=== PATIENT | female | born 1940 | race Asian ===

== ENCOUNTER 2016-08-21 15:56 | Emergency (ER) | payer MEDICARE, MEDICAID ==
[~2016-08-21] VITALS: Ht 152.4 cm; Wt 44.0 kg
[~2016-08-21 15:56] MED LIST: PHEN-538 PO
[2016-08-21 16:38] VITALS: Ht 152.4 cm; Wt 44.0 kg
--- NOTE | 2016-08-21 17:34 | ERA ---
ER Documentation Chief Complaint Date/Time DATE: 08/21/16 TIME: 17:34 Chief Complaint ABDOMINAL PAIN,HX COLON CA,Pt HAS COLOSTOMY.SENT BY DR SHAQUILLE DELACRUZ The patient is a 76-year-old female, presenting to the ER because of intermittent abdominal pain for 7 days. He was constipated. She took prune juice and she was able to empty her colostomy. However there was no stool in the colostomy for the last 3 days. She was seen by her physician Dr. Brown who sent her to the hospital for admission. She does not have any fever, chills , neck pain, chest pain, dyspnea, vomiting, dysuria. She does not smoke, drink Past medical history: History of colon cancer, status post chemotherapy and radiation therapy, hypertension Past surgical history: Colostomy, hysterectomy, proctocolectomy ROS All systems reviewed and are negative except as per history of present illness. Medications Home Meds Discontinued Scripts Phenazopyridine Hcl* (Pyridium*) 200 Mg Tab, 200 MG PO TID, #6 TAB Prov:YOON HAIDER 10/07/15 Allergies Allergies: Coded Allergies: Penicillins (Verified Allergy, Mild, VOMITING/DIZZINESS/SOB, 08/21/16) ciprofloxacin (Verified Allergy, Unknown, 08/21/16) PMhx/Soc History of Surgery: Yes (colostomy and partial pro-colectomy) Anesthesia Reaction: No Hx Neurological Disorder: No Hx Respiratory Disorders: No Hx Cardiac Disorders: Yes (HTN) Hx Psychiatric Problems: No Hx Miscellaneous Medical Probl: Yes (H/O FALLS) Hx Alcohol Use: No Hx Substance Use: No Hx Tobacco Use: No Physical Exam Vitals Vital Signs Date Time Temp Pulse Resp B/P Pulse Ox O2 Delivery O2 Flow Rate FiO2 08/21/16 16:38 98.3 77 18 139/69 98 Physical Exam Const: No acute distress. Head: Atraumatic. Eyes: Normal Conjunctiva. ENT: Normal External Ears, Nose and Mouth. Neck: Full range of motion. No meningismus. Resp: Clear to auscultation bilaterally. Cardio: Regular rate and rhythm, no murmurs. Abd: Soft, non distended, normal bowel sounds, non tender. Positive for left lower quadrant colostomy Skin: No petechiae or rashes. Back: No midline or flank tenderness. Ext: No cyanosis, or edema. Neur: Awake and alert. No focal deficit Psych: Normal Mood and Affect. Result Diagram: 08/21/16 1750 08/21/16 1840 Results 24 hrs Laboratory Tests Test 08/21/16 17:40 08/21/16 17:50 08/21/16 18:14 08/21/16 18:40 Urine Bilirubin NEGATIVE Urine Clarity CLEAR Urine Color YELLOW Urine Glucose NEGATIVE% Urine Hemoglobin 2+ Urine Ketones TRACE Urine Leukocyte Esterase NEGATIVE Urine Microscopic RBC 2-5/HPF Urine Microscopic WBC 0-2/HPF Urine Nitrite NEGATIVE Urine Specific [place] 1.015 Urine Squamous Epithelial Cells OCCASIONAL Urine Total Protein NEGATIVE Urine Urobilinogen 0.2 E.U./dL Urine pH 5.0 Basophils # 0.010^3/ul Basophils % 0.3% Eosinophils # 0.010^3/ul Eosinophils % 0.6% Hematocrit 40.9% Hemoglobin 13.6g/dl Lymphocytes # 1.310^3/ul Lymphocytes % 21.6% Mean Corpuscular Hemoglobin 32.4pg Mean Corpuscular Hemoglobin Concent 33.3g/dl Mean Corpuscular Volume 97.3fl Mean Platelet Volume 9.1fl Monocytes # 0.910^3/ul Monocytes % 14.0% Neutrophils # 3.910^3/ul Neutrophils % 63.5% Nucleated Red Blood Cells # 0.010^3/ul Nucleated Red Blood Cells % 0.0/100WBC Platelet Count 36208^3/UL Red Blood Count 4.2010^6/ul Red Cell Distribution Width 13.1% White Blood Count 6.210^3/ul Bedside Urine Blood 2+ Bedside Urine Glucose (UA) Negative Bedside Urine Ketones (LAB) Trace Bedside Urine Leukocyte Esterase (L Negative Bedside Urine Nitrite (LAB) Negative Bedside Urine Protein (LAB) Negative Bedside Urine pH (LAB) 5.5 Alanine Aminotransferase (ALT/SGPT) 34IU/L Albumin 4.0g/dl Albumin/Globulin Ratio 1.05 Alkaline Phosphatase 79IU/L Anion Gap 16 Aspartate Amino Transf (AST/SGOT) 28IU/L Blood Urea Nitrogen 17mg/dl Calcium Level 9.5mg/dl Carbon Dioxide Level 29mmol/L Chloride Level 103mmol/L Creatinine 0.69mg/dl Direct Bilirubin 0.00mg/dl Globulin 3.80g/dl Glucose Level 90mg/dl Indirect Bilirubin 0.3mg/dl Lipase 125U/L Potassium Level 4.8mmol/L Sodium Level 143mmol/L Total Bilirubin 0.3mg/dl Total Protein 7.8g/dl Procedures/[place] [id number] Radiology Main Line: [phone] DIAGNOSTIC IMAGING REPORT Patient: CHERYL LEVY : 1940 Age: 76 Sex: F [id number] [facility] [id number] DOS: 08/21/16 1747 Ordering MD: JERRY BROWN MD Location: E/R Room/Bed: PROCEDURE: CT Abdomen and Pelvis without contrast. CLINICAL INDICATION: Pain. TECHNIQUE: CT scan of the abdomen and pelvis was performed on a multidetector slice CT scanner. No intravenous contrast material was utilized. Sagittal and coronal reformatted images were obtained from the axial source images. Images were reviewed on a high-resolution PACS workstation. Exam CTDlvol = 4.6 mGy and DLP = 239 Gy-cm. COMPARISON: None. FINDINGS: Left lower quadrant colostomy is redemonstrated. There is surgical clips compatible the rectosigmoid colon resection are redemonstrated. There is abundant stool throughout the colon. There is no obstruction or ileus. There is diffuse gastric wall thickening redemonstrated. The appendix is not identified. There is no secondary evidence for acute appendicitis. There is no evidence for diverticulitis. There is no free fluid. The liver is overall normal in size. No intrahepatic lesions are identified. The gallbladder is contracted. There is no definite biliary ductal dilation. Pancreas is normal in appearance. Spleen is unremarkable.. There are no adrenal masses. The aorta is normal caliber. There are atherosclerotic vascular calcifications. 5 mm cortical hyperdensity in the lower pole of the left kidney, unchanged. There is a punctate nonobstructing calcification in the lower pole left kidney. Kidneys are otherwise normal in appearance without hydronephrosis or obstructing calculus. Ureters are of normal caliber. Urinary bladder is partially contracted with nonspecific wall thickening.. Neither the uterus and ovaries were identified. There is a reverse S-shaped scoliosis with associated degenerative changes of the spine. Limited evaluation lung bases is unremarkable. IMPRESSION: 1. Redemonstrated left lower quadrant colostomy. Abundant stool throughout the colon. No definite structure ileus. 2. Status post rectosigmoid colon resection. 3. Appendix not identified. No evidence for appendicitis or diverticulitis. 4. Contracted gallbladder. No evidence for cholecystitis or biliary obstruction. 5. Unchanged small hyperdense cortical probable complex cyst of the left kidney. Punctate nonobstructing calcification left kidney, unchanged. No obstructive uropathy. Partially contracted gallbladder with nonspecific wall thickening. 6. Status post hysterectomy. 7. Atherosclerotic vascular calcifications. 8. Scoliosis with degenerative changes of the thoracic lumbar spine. RPTAT: HMVK .Jerry De Luna MD, MD Date Time Electronically viewed and signed by .Jerry De Luna MD, MD on 08/21/2016 20:49 .K/ CC: JERRY BROWN MD MEDICAL MAKING DECISION: The patient is a 76-year-old female, presenting to the ER because of constipation. The differential diagnoses considered include but are not limited to colostomy malfunction, cholelithiasis, cholecystitis, cystitis, pancreatitis, hepatitis, gastritis, peptic ulcer disease, gastric ulcer, appendicitis, diverticulitis, cholangitis, choledocholithiasis, partial small bowel obstruction. Departure Diagnosis: Primary Impression: Abdominal pain Additional Impression: Constipation Condition: Good Comments She was discharged with MiraLAX I discussed the findings with the patient. I advised the patient to follow-up with her surgeon Dr Anna tomorrow, and return if any concern. JERRY BROWN MD Aug 21, 2016 17:34
[2016-08-21 18:14] LABS: URINE BLOOD (Dip) POC 2+ (NEGATIVE)
[2016-08-21 18:25] LABS: BASOPHILS % 0.3 % (0.0-2.0); EOSINOPHILS % 0.6 % (0.0-7.0); HEMATOCRIT 40.9 % (37.0-47.0); HEMOGLOBIN 13.6 g/dl (12.0-16.0); LYMPHOCYTES # 1.3 10^3/ul (0.8-2.9); LYMPHOCYTES % 21.6 % (15.0-51.0); MEAN CORPUSCULAR HEMOGLOBIN 32.4 pg (29.0-33.0); MEAN CORPUSCULAR HGB CONC 33.3 g/dl (32.0-37.0); MEAN CORPUSCULAR VOLUME 97.3 fl (82.0-101.0); MEAN PLATELET VOLUME 9.1 fl (7.4-10.4); MONOCYTE # 0.9 10^3/ul (0.3-0.9); NEUTROPHIL # 3.9 10^3/ul (1.6-7.5); NEUTROPHILS % 63.5 % (39.0-77.0); PLATELET COUNT 206 10^3/UL (140-440); RED CELL DISTRIBUTION WIDTH 13.1 % (11.5-14.5); UNCORRECTED WBC 6.2 10^3/ul (4.8-10.8); WHITE BLOOD COUNT 6.2 10^3/ul (4.8-10.8)
[2016-08-21 18:26] LABS: CONDITION 1
[2016-08-21 18:29] LABS: ADD UMIC YES; URINE BILIRUBIN (Dip) NEGATIVE (NEGATIVE); URINE BLOOD (Dip) 2+ (NEGATIVE); URINE GLUCOSE (Dip) NEGATIVE (NEGATIVE); URINE KETONES (Dip) TRACE (NEGATIVE); URINE LEUKOCYTE ESTERASE (Dip) NEGATIVE (NEGATIVE); URINE NITRITE (Dip) NEGATIVE (NEGATIVE); URINE TOTAL PROTEIN (Dip) NEGATIVE (NEGATIVE); URINE UROBILINOGEN (Dip) 0.2 E.U./dL (0.1-1.0)
[2016-08-21 18:47] LABS: URINE COLOR YELLOW (YELLOW)
[2016-08-21 18:53] LABS: SQUAMOUS EPITHELIAL CELL,UR OCCASIONAL
[2016-08-21 19:22] LABS: POTASSIUM 4.8 mmol/L (3.5-5.1)
[2016-08-21 19:24] LABS: ALBUMIN/GLOBULIN RATIO 1.05; BILIRUBIN,INDIRECT 0.3 mg/dl (0-1.1); BILIRUBIN,TOTAL 0.3 mg/dl (0.2-1.3); CREATININE 0.69 mg/dl (0.44-1.00); TOTAL PROTEIN 7.8 g/dl (6.1-8.1)
[2016-08-21 19:25] LABS: CALCIUM 9.5 mg/dl (8.4-10.2)
--- NOTE | 2016-08-21 20:49 | RADRPT ---
PROCEDURE: CT Abdomen and Pelvis without contrast. CLINICAL INDICATION: Pain. TECHNIQUE: CT scan of the abdomen and pelvis was performed on a multidetector slice CT scanner. N o intravenous contrast material was utilized. Sagittal and coronal reformatted images were obtained from the axial source images. Images were reviewed on a high-resolution PACS workstation. Exam CTDl vol = 4.6 mGy and DLP = 239 Gy-cm. COMPARISON: None. FINDINGS: Left lower quadrant colostomy is redemonstrated. There is surgical clips compatible the rectosigmoid colon resection are redemonstrated. There is abundant stool throughout the colon. There is no obstr uction or ileus. There is diffuse gastric wall thickening redemonstrated. The appendix is not identi fied. There is no secondary evidence for acute appendicitis. There is no evidence for diverticulit is. There is no free fluid. The liver is overall normal in size. No intrahepatic lesions are identified. The gallbladder is co ntracted. There is no definite biliary ductal dilation. Pancreas is normal in appearance. Spleen i s unremarkable.. There are no adrenal masses. The aorta is normal caliber. There are atheroscleroti c vascular calcifications. 5 mm cortical hyperdensity in the lower pole of the left kidney, unchanged. There is a punctate nono bstructing calcification in the lower pole left kidney. Kidneys are otherwise normal in appearance w ithout hydronephrosis or obstructing calculus. Ureters are of normal caliber. Urinary bladder is p artially contracted with nonspecific wall thickening.. Neither the uterus and ovaries were identified. There is a reverse S-shaped scoliosis with associated degenerative changes of the spine. Limited evaluation lung bases is unremarkable. IMPRESSION: 1. Redemonstrated left lower quadrant colostomy. Abundant stool throughout the colon. No definite structure ileus. 2. Status post rectosigmoid colon resection. 3. Appendix not identified. No evidence for appendicitis or diverticulitis. 4. Contracted gallbladder. No evidence for cholecystitis or biliary obstruction. 5. Unchanged small hyperdense cortical probable complex cyst of the left kidney. Punctate nonobstr ucting calcification left kidney, unchanged. No obstructive uropathy. Partially contracted gallbla dder with nonspecific wall thickening. 6. Status post hysterectomy. 7. Atherosclerotic vascular calcifications. 8. Scoliosis with degenerative changes of the thoracic lumbar spine. RPTAT: HMVK .Jerry De Luna MD, MD Date Time Electronically viewed and signed by .Jerry De Luna MD, MD on 08/21/2016 20:49 .K/
[2016-08-21] MEDS ORDERED: POLY17PO6 PO (21:22)
[2016-08-21 21:55] VITALS: BP 135/75; PULSE 75; RESP 18; TEMP 98.6
== END 2016-08-21 21:56 | disposition home or self-care (01) ==
LOC: E/R 15:56
DX: R10.9 Unspecified abdominal pain (principal); K59.00 Constipation, unspecified; I10 Essential (primary) hypertension; Z85.038 Personal history of other malignant neoplasm of large intestine
CPT/HCPCS: 36415; 74176; 80053; 81001; 81003; 83690; 85025; 87086

== ENCOUNTER 2016-10-28 19:33 | Inpatient (IN) | payer MEDICARE, OTHER ==
[~2016-10-28] VITALS: Ht 154.9 cm; Wt 44.4 kg
[~2016-10-28 19:33] MED LIST changes: -PHEN-538 PO; +POLY17PO6 PO
[2016-10-28] MEDS ORDERED: ONDANSETRON 4 MG INJ IV STA (21:09)
[2016-10-28] MEDS ORDERED: SOD CHLORIDE 0.9% 1,000 ML IV STA (21:09)
--- NOTE | 2016-10-28 21:15 | ERA ---
ER Documentation Chief Complaint Date/Time DATE: 10/28/16 TIME: 21:13 Chief Complaint PT with AP and N/V since last night. HPI Patient is a 76-year-old female status post colon resection with colostomy who presents to the ER with 10 episodes of vomiting. Patient reports gradual onset , constant, dull, lower abdominal pain since last night. She has normal stool output from her ostomy, no diarrhea or constipation. She denies fever, denies bloody emesis. Denies chest pain, denies shortness of breath. ROS All systems reviewed and are negative except as per history of present illness. Medications Home Meds Active Scripts Polyethylene Glycol* (Miralax*) 17 Gm Powd.pack, 17 GM PO DAILY, #10 Prov:RICHARD BROWN MD 08/21/16 Allergies Allergies: Coded Allergies: Penicillins (Verified Allergy, Mild, VOMITING/DIZZINESS/SOB, 08/21/16) ciprofloxacin (Verified Allergy, Unknown, 08/21/16) PMhx/Soc Past medical history: Colon cancer Past surgical history: Total hysterectomy, partial colectomy Social history: Denies tobacco or alcohol History of Surgery: Yes (colostomy and partial pro-colectomy) Anesthesia Reaction: No Hx Neurological Disorder: No Hx Respiratory Disorders: No Hx Cardiac Disorders: Yes (HTN) Hx Psychiatric Problems: No Hx Miscellaneous Medical Probl: Yes (H/O FALLS) Hx Alcohol Use: No Hx Substance Use: No Hx Tobacco Use: No Smoking Status: Never smoker FmHx Family History: No coronary disease, No diabetes Physical Exam Vitals Vital Signs Date Time Temp Pulse Resp B/P Pulse Ox O2 Delivery O2 Flow Rate FiO2 10/28/16 22:54 78 16 138/62 99 Room Air 10/28/16 20:49 88 16 111/61 97 Room Air 10/28/16 19:42 99.3 104 16 127/61 97 Physical Exam Const: Alert, no acute distress Head: Atraumatic Eyes: Normal Conjunctiva, no pallor or icterus ENT: Normal External Ears, Nose and Mouth. Neck: Full range of motion. No meningismus. Resp: Clear to auscultation bilaterally, no wheezes, no rales, no rhonchi Cardio: Regular rate and rhythm, no murmurs Abd: Soft, colostomy in left lower quadrant, mild tenderness bilateral lower quadrants, mild distention. Brown stool in colostomy bag, well-formed Skin: No petechiae or rashes Back: No midline or flank tenderness Ext: No cyanosis, or edema Neur: Awake and alert, cranial nerves II through XII intact bilaterally, moves and feels 4 extremities appropriately Psych: Normal Mood and Affect Result Diagram: 10/28/16211910/28/162119 Results 24 hrs Laboratory Tests Test 10/28/16 21:20 10/28/16 22:00 White Blood Count 11.710^3/ul Red Blood Count 4.6910^6/ul Hemoglobin 15.2g/dl Hematocrit 45.8% Mean Corpuscular Volume 97.7fl Mean Corpuscular Hemoglobin 32.4pg Mean Corpuscular Hemoglobin Concent 33.2g/dl Red Cell Distribution Width 13.0% Platelet Count 01760^3/UL Mean Platelet Volume 10.7fl Neutrophils % 83.2% Lymphocytes % 6.7% Monocytes % 9.4% Eosinophils % 0.2% Basophils % 0.2% Nucleated Red Blood Cells % 0.0/100WBC Neutrophils # 9.810^3/ul Lymphocytes # 0.810^3/ul Monocytes # 1.110^3/ul Eosinophils # 0.010^3/ul Basophils # 0.010^3/ul Nucleated Red Blood Cells # 0.010^3/ul Sodium Level 142mmol/L Potassium Level 4.7mmol/L Chloride Level 98mmol/L Carbon Dioxide Level 31mmol/L Anion Gap 18 Blood Urea Nitrogen 22mg/dl Creatinine 0.91mg/dl Glucose Level 128mg/dl Calcium Level 10.4mg/dl Total Bilirubin 1.1mg/dl Direct Bilirubin 0.00mg/dl Indirect Bilirubin 1.1mg/dl Aspartate Amino Transf (AST/SGOT) 36IU/L Alanine Aminotransferase (ALT/SGPT) 30IU/L Alkaline Phosphatase 95IU/L Total Protein 8.3g/dl Albumin 4.6g/dl Globulin 3.70g/dl Albumin/Globulin Ratio 1.24 Lipase 146U/L Urine Color LT. YELLOW Urine Clarity CLEAR Urine pH 7.0 Urine Specific [place] 1.010 Urine Ketones NEGATIVE Urine Nitrite NEGATIVE Urine Bilirubin NEGATIVE Urine Urobilinogen 0.2 E.U./dL Urine Leukocyte Esterase NEGATIVE Urine Microscopic RBC 2-5/HPF Urine Microscopic WBC 0-2/HPF Urine Squamous Epithelial Cells OCCASIONAL Urine Bacteria FEW Urine Mucus FEW Urine Hemoglobin TRACE Urine Glucose NEGATIVE% Urine Total Protein NEGATIVE Current Medications Medications (Trade) Dose Ordered Sig/Sweta Route PRN Reason Start Time Stop Time Status Last Admin Dose Admin Sodium Chloride (NS) 1,000 ml @ 1,000 mls/hr Q1H STAT IV 10/28/16 21:09 10/28/16 22:08 DC 10/28/16 21:30 Ondansetron HCl 4 mg 4 mg ONCE STAT IV 10/28/16 21:09 10/28/16 21:12 DC 10/28/16 21:30 Acetaminophen (Ofirmev 1000mg/ 100ml Iv) 100 ml @ 400 mls/hr ONCE ONCE IVPB 10/28/16 21:30 10/28/16 21:44 DC 10/28/16 21:30 IV Flush 10 ml 10 ml STK-MED ONCE .ROUTE 10/28/16 21:41 10/28/16 21:42 DC 10/28/16 22:10 Sodium Chloride (NS) 100 ml @ ud STK-MED ONCE .ROUTE 10/28/16 21:41 10/28/16 21:42 DC 10/28/16 22:10 Iohexol (Omnipaque 300mg/ ml) 150 ml STK-MED ONCE .ROUTE 10/28/16 21:42 10/28/16 21:43 DC 10/28/16 22:10 Procedures/MDM EKG read by me: Time 2120, rate 81 Rhythm: Normal sinus [place]: Normal Intervals: Normal ST-T waves: no ischemic changes Ectopy: No Q-waves: No Impression: No evidence of ischemia or arrhythmia MDM: Patient is a 76-year-old female with history of colon cancer status post colectomy, history of prior small bowel obstruction who presents with 10 episodes of vomiting and abdominal pain. CT scan shows small bowel obstruction with transition point. There is no perforation. Patient is not actively vomiting in the ER. There is stool output in the ostomy. She is clinically stable. I discussed the case with her PMD Dr. Phillip, who will admit the patient. We agreed that the patient does not require an NG tube at this time. He will consult a surgeon in the morning unless there is a change in status overnight. Departure Diagnosis: Primary Impression: Small bowel obstruction Condition: Stable JABARI MULLEN MD Oct 28, 2016 21:15
[2016-10-28 21:27] LABS: ADD SCAN DIFF NO
[2016-10-28 21:29] LABS: BASOPHILS % 0.2 % (0.0-2.0); EOSINOPHILS % 0.2 % (0.0-7.0); HEMATOCRIT 45.8 % (37.0-47.0); HEMOGLOBIN 15.2 g/dl (12.0-16.0); LYMPHOCYTES # 0.8 10^3/ul (0.8-2.9); LYMPHOCYTES % 6.7 % (15.0-51.0); MEAN CORPUSCULAR HEMOGLOBIN 32.4 pg (29.0-33.0); MEAN CORPUSCULAR HGB CONC 33.2 g/dl (32.0-37.0); MEAN CORPUSCULAR VOLUME 97.7 fl (82.0-101.0); MEAN PLATELET VOLUME 10.7 fl (7.4-10.4); MONOCYTE # 1.1 10^3/ul (0.3-0.9); MONOCYTES % 9.4 % (0.0-11.0); NEUTROPHIL # 9.8 10^3/ul (1.6-7.5); NEUTROPHILS % 83.2 % (39.0-77.0); PLATELET COUNT 261 10^3/UL (140-415); RED BLOOD COUNT 4.69 10^6/ul (4.20-5.40); WHITE BLOOD COUNT 11.7 10^3/ul (4.8-10.8)
[2016-10-28] MEDS ORDERED: ACETAMINOPHEN 1000MG/100ML IV 100 ML IVPB ONE (21:30)
[2016-10-28] MEDS ORDERED: SOD CHLORIDE 0.9% 100 ML ONE (21:41)
[2016-10-28] MEDS ORDERED: IOHEXOL 300MG/ML 150 ML BTL ONE (21:42)
[2016-10-28 21:47] LABS: ALBUMIN 4.6 g/dl (3.3-4.9); POTASSIUM 4.7 mmol/L (3.5-5.1)
[2016-10-28 21:49] LABS: BILIRUBIN,INDIRECT 1.1 mg/dl (0-1.1); BILIRUBIN,TOTAL 1.1 mg/dl (0.2-1.3); CREATININE 0.91 mg/dl (0.44-1.00)
[2016-10-28 21:50] LABS: ALBUMIN/GLOBULIN RATIO 1.24; CALCIUM 10.4 mg/dl (8.4-10.2); TOTAL PROTEIN 8.3 g/dl (6.1-8.1)
[2016-10-28 22:41] LABS: ADD UMIC YES; URINE BILIRUBIN (Dip) NEGATIVE (NEGATIVE); URINE BLOOD (Dip) TRACE (NEGATIVE); URINE COLOR LT. YELLOW (YELLOW); URINE GLUCOSE (Dip) NEGATIVE (NEGATIVE); URINE KETONES (Dip) NEGATIVE (NEGATIVE); URINE LEUKOCYTE ESTERASE (Dip) NEGATIVE (NEGATIVE); URINE NITRITE (Dip) NEGATIVE (NEGATIVE); URINE TOTAL PROTEIN (Dip) NEGATIVE (NEGATIVE); URINE UROBILINOGEN (Dip) 0.2 E.U./dL (0.1-1.0)
--- NOTE | 2016-10-28 22:43 | RADRPT ---
PROCEDURE: CT Abdomen and Pelvis with contrast. CLINICAL INDICATION: Abdomen and pelvis pain. TECHNIQUE: CT scan of the abdomen and pelvis with contrast was performed. The patient was scanned following the uncomplicated intravenous administration of 90 cc of Omnipaque-300. Coronal and sagit tor reformatted images were obtained from the axial source images. Images were reviewed on a [employer] PACS workstation. Total exam DLP is 217.61 mGy-cm. CTDIvol is 4.16 mGy. One or more of t he following dose reduction techniques were used: Automated exposure control, adjustment of the mA a nd/or kV according to patient size, use of iterative reconstruction technique. COMPARISON: CT scan of the abdomen and pelvis dated 08/21/2016. FINDINGS: The lung bases are normal. There is no pleural effusion or pericardial effusion. The heart is mild ly enlarged. The liver is normal in size and attenuation. There is no focal hepatic lesion. The gallbladder and bile ducts are normal. The spleen is normal in size. There is no focal splenic lesion. Both adrenals are normal with no enlargement or mass. The pancreas is unremarkable with no mass or evidence of pancreatitis. Both kidneys demonstrate normal contrast enhancement. There is no solid renal mass or hydronephros is. There are small benign left renal cysts. The abdominal aorta is not dilated. There is calcification in the aorta consistent with atheroscler osis. There is no retroperitoneal lymphadenopathy or mass. There is no pelvic lymphadenopathy or mass. The bladder and distal ureters are normal. There is a left lower quadrant colostomy. There are multiple dilated loops of small bowel with air-fluid levels consistent with ileus or obstr uction. No obstructing lesion is visualized however, there is a transition point posteriorly inferi fredi in the pelvis. There is a small amount of free fluid throughout the abdomen and pelvis. There is no free air. Mult iple surgical clips are present in the pelvis. There are degenerative changes of the spine. There is no fracture or lytic lesion. IMPRESSION: 1. Mild cardiomegaly. 2. Small benign left renal cysts. 3. Atherosclerosis. 4. Left lower quadrant colostomy. 5. Multiple dilated loops of small bowel with air-fluid levels consistent with ileus or obstruction . Transition point posteriorly inferiorly in the pelvis. 6. Small amount of free fluid in the abdomen and pelvis. 7. Multiple surgical clips in the pelvis. 8. Degenerative changes of the spine. RPTAT: QQ .Jan Cuadra MD, Date Time Electronically viewed and signed by .Jan Cuadra MD, on 10/28/2016 22:42 .R/
[2016-10-28 23:20] LABS: BACTERIA,URINE FEW; SQUAMOUS EPITHELIAL CELL,UR OCCASIONAL
[2016-10-28 23:21] LABS: MUCUS,URINE FEW
[2016-10-29] MEDS ORDERED: ACETAMINOPHEN 325 MG TAB PO PRN (02:30)
[2016-10-29] MEDS ORDERED: ONDANSETRON 4 MG INJ IV PRN ×2 (02:30→04:00)
[2016-10-29 02:52] VITALS: TEMP 98.9
[2016-10-29 03:27] VITALS: Ht 154.9 cm; Wt 44.4 kg
[2016-10-29] MEDS: D5W-0.45 NACL + KCL 20 MEQ 1,000 ML IV SCH ×2 (04:16→17:58)
[2016-10-29 07:30] VITALS: BP 142/73; PULSE 77; RESP 18
[2016-10-29] MEDS ORDERED: PANTOPRAZOLE (EC) 40 MG TAB PO SCH (10:00)
[2016-10-29 10:54] LABS: ADD SCAN DIFF NO
[2016-10-29 11:11] LABS: BASOPHILS % 0.2 % (0.0-2.0); EOSINOPHILS % 0.3 % (0.0-7.0); HEMATOCRIT 44.3 % (37.0-47.0); HEMOGLOBIN 14.6 g/dl (12.0-16.0); LYMPHOCYTES # 0.7 10^3/ul (0.8-2.9); LYMPHOCYTES % 7.8 % (15.0-51.0); MEAN CORPUSCULAR HEMOGLOBIN 32.6 pg (29.0-33.0); MEAN CORPUSCULAR VOLUME 98.9 fl (82.0-101.0); MEAN PLATELET VOLUME 10.7 fl (7.4-10.4); MONOCYTE # 0.8 10^3/ul (0.3-0.9); MONOCYTES % 8.9 % (0.0-11.0); NEUTROPHIL # 7.4 10^3/ul (1.6-7.5); NEUTROPHILS % 82.4 % (39.0-77.0); PLATELET COUNT 247 10^3/UL (140-415); RED BLOOD COUNT 4.48 10^6/ul (4.20-5.40); RED CELL DISTRIBUTION WIDTH 12.8 % (11.5-14.5)
[2016-10-29 11:12] LABS: CALCIUM 9.1 mg/dl (8.4-10.2); CREATININE 0.76 mg/dl (0.44-1.00); POTASSIUM 4.1 mmol/L (3.5-5.1)
[2016-10-29] MEDS: PANTOPRAZOLE 40 MG INJ IV SCH (11:21)
[2016-10-29 13:25] LABS: ADD UMIC YES; URINE BILIRUBIN (Dip) NEGATIVE (NEGATIVE); URINE BLOOD (Dip) TRACE (NEGATIVE); URINE COLOR LT. YELLOW (YELLOW); URINE GLUCOSE (Dip) NEGATIVE (NEGATIVE); URINE KETONES (Dip) 15 (NEGATIVE); URINE LEUKOCYTE ESTERASE (Dip) NEGATIVE (NEGATIVE); URINE NITRITE (Dip) NEGATIVE (NEGATIVE); URINE TOTAL PROTEIN (Dip) NEGATIVE (NEGATIVE); URINE UROBILINOGEN (Dip) 0.2 E.U./dL (0.1-1.0)
[2016-10-29 13:52] LABS: BACTERIA,URINE FEW; SQUAMOUS EPITHELIAL CELL,UR FEW; URINE RBCS 0-2 /HPF (0)
--- NOTE | 2016-10-29 16:47 | RADRPT ---
PROCEDURE: XR Abdomen. CLINICAL INDICATION: Abdominal pain. Possible small bowel obstruction TECHNIQUE: Upright and supine abdominal x-rays were obtained. COMPARISON: CT abdomen and pelvis 10/28/2016 FINDINGS: Gaseous distension of multiple loops of small bowel is unchanged from the prior CT allowing for diff erences in modality with scattered air / fluid levels on the upright projection unable to exclude sm all bowel obstruction versus severe adynamic ileus. Residual contrast media within the urinary bladder is present. Multiple metallic clips in the pelvis are again noted. There is no free intraperitoneal air. The osseus structures are unremarkable. RPTAT:HJJR IMPRESSION: 1. Small bowel obstruction pattern versus severe adynamic ileus is stable compared to the CT of 02/2017 allowing for the differences and modalities. 2. Residual contrast media within the urinary bladder from the prior contrast injection. Physician Paulina Date Time Electronically viewed and signed by Physician Paulina on 10/29/2016 16:46 /
[2016-10-29] MEDS ORDERED: morphine 10 MG INJ IM PRN (17:30)
[2016-10-29] MEDS: CEFTRIAXONE 1 GM/50 ML (PMX) 50 ML IVPB SCH (17:56)
--- NOTE | 2016-10-29 18:05 | HP ---
DATE OF ADMISSION: 10/29/2016 CHIEF COMPLAINT AND HISTORY OF PRESENT ILLNESS: The patient is a 76-year-old lady well known to me from previous followup, with prior history of colon resection, status post colostomy, who presents w ith severe pain in the lower abdomen of 1 day duration and vomited almost 10 times. No hematemesis or melena. Colostomy has been functioning well. The stool has been somewhat harder. No history of any bloody stools. She has a history of colon carcinoma, had a partial proctocolectomy with divert ing colostomy [address] Anna and has been followed closely by Dr. Anna. Her other surgeries include hysterectomy, exact details not clear. She has had several episodes of urinary tr act infection over the last year. PAST MEDICAL HISTORY: Significant for history of hypertension, well controlled. FAMILY HISTORY: Negative for diabetes, hypertension or cancer. HABITS: Does not smoke or drink. REVIEW OF SYSTEMS: HEAD: No history of headaches, focal weakness, or numbness. EYES: No blurry vision or glaucoma. ENT: Noncontributory. NECK: No history of thyroid disease. CHEST: No bronchitis, hay fever, or asthma. The patient does not smoke. CARDIOVASCULAR: No PND, orthopnea, palpitations. GASTROINTESTINAL: As above. There has been no evidence of recurrence of cancer. She has had sever al hospitalizations for small-bowel obstruction, which have resolved with conservative management. GENITOURINARY: History of recurrent urinary tract infections. PHYSICAL EXAMINATION: GENERAL: The patient is an average-built female who is presently complaining of mild lower abdomina l pain. VITAL SIGNS: Temperature 98.3, blood pressure 142/73, O2 saturation 98% on room air. HEENT: Head normocephalic. No pallor, cyanosis, or icterus. Tongue is moist. NECK: Supple. No thyromegaly, bruits or lymphadenopathy. LUNGS: Clinically clear. HEART: S1, S2 heard with no definite gallops. ABDOMEN: Mildly distended, mild lower abdominal tenderness. Bowel sounds are hypoactive. Colostom y bag has stool, no blood noted. EXTREMITIES: No edema. Pedal pulsations 2+ bilaterally. Homans sign is negative. NEUROLOGIC: No localizing or lateralizing signs. LABORATORY DATA: Initial CT scan done on 10/28/2016 shows multiple dilated loops of small bowel wit h air-fluid levels consistent with ileus or obstruction, a small amount of free fluid in the abdomen and pelvis. WBC count 11.7, hematocrit 45.8. Sodium 140, potassium 4.7, BUN 22, creatinine 0.91. IMPRESSION: 1. Small-bowel obstruction status post prior proctocolectomy with colostomy for colon cancer with n o evidence of recurrence. 2. Possible urinary tract infection. 3. Hypertension. PLAN: Will obtain urine cultures and then start the patient on ceftriaxone, keep the patient on bow el rest. Will just give 1 dose of magnesium citrate p.o. Recheck potassium levels in a.m. Continu e IV hydration. Narcotic analgesia for pain. Surgical consultation to be requested Dr. Epps and will follow his recommendations. Dictated By: ASHLEY LA MD, SR/LINA Conf#: [id number] DID#: [id number]
[2016-10-29] MEDS ORDERED: MAGNESIUM CITRATE 300 ML BTL PO ONE (18:30)
[2016-10-29 20:00] VITALS: BP 140/65; RESP 16
--- NOTE | 2016-10-29 21:10 | CONS ---
Date/Time of Note Date/Time of Note DATE: 10/29/16 TIME: 21:00 Assessment/Plan Assessment/Plan Chief Complaint/Hosp Course 1. Abdominal pain, nausea and vomiting secondary to small-bowel obstructions identified on CT scan. This is most probably from adhesive process. -Hematology/Oncology and GI evaluation -CEA -Out of bed and ambulation -Chew gum 2. History of rectal cancer. No evidence of cancer at this time. -Evaluation and followup as above. 3. Leukocytosis, most probably secondary to above. Improved 7. Gastroesophageal reflux disease (GERD) -antacid and lifestyle modification. 8. HTN -diet/med optimization Thank you very much for consulting me in patient's care. Problems: Consultation Date/Type/Reason Admit Date/Time Oct 29, 2016 at 02:16 Date of Consultation: Oct 29, 2016 Type of Consultation: Gen Surgical Reason for Consultation 1. Abdominal pain. 2. Nausea and vomiting. 3. Small bowel obstruction. 4. History of rectal cancer. 5. Leukocytosis. Referring Provider: ASHLEY AL MD Hx of Present Illness Aria Osborn is a 76-year-old female with multiple comorbidities who had rectal cancer, status post APR & end colostomy about [address] Anna. She has had previous histories of bowel obstructions that were treated conservatively without surgical intervention. She re-presents with abdominal pain, bloating, nausea, vomiting, constipation and obstipation through her ostomy without fevers, chills, chest pain, shortness of breath, cough, seizures, blood per mouth or rectum, visual or neurologic changes, dysuria, vaginal discharge, trauma, sick contacts, or pyuria. Her workup identified her to be afebrile with stable vitals. She initially had leukocytosis at 11,000. Her chemistry had some abnormalities which are being corrected. She had a CT scan of the abdomen and pelvis identifying small-bowel obstruction with transition point in the left lower pelvis without any evidence of tumors. She states pain is improving and she had some gas in colostomy. Surgical consult is obtained for further evaluation. 12 point ros negative unless addressed in hpi Past Medical History 1. Rectal cancer. 2. Fibroids. 3. Small bowel obstruction, probably secondary to adhesive process. 4. GERD. 5. Urinary tract infection. 6. Leukocytosis. 7. Noncompliance hx Past Surgical History 1. Abdominoperineal resection about [address] Anna. 2. Hysterectomy about 5 years ago. Family History Significant Family History: no pertinent family hx Social History Alcohol Use: none Smoking Status: Never smoker Drug Use: none Exam/Review of Systems Vital Signs Vitals Vital Signs Date Time Temp Pulse Resp B/P Pulse Ox O2 Delivery O2 Flow Rate FiO2 10/29/16 07:30 98.3 77 18 142/73 98 Room Air Intake and Output 10/28/16 10/28/16 10/29/16 15:00 23:00 07:00 Intake Total 1100 ml Balance 1100 ml Exam Constitutional: alert, frail, oriented, No distress, No obese Psych: nl mood/affect, No anxiety, No confusion Head: atraumatic, normocephalic Eyes: EOMI, PERRL, nl conjunctiva, No icteric ENMT: mucosa pink and moist, nl external ears & nose, nl lips & teeth Neck: non-tender, supple, No jvd Respiratory: normal air movement, No congested cough, No labored breathing Cardiovascular: regular rate and rhythm, No edema Gastrointestinal: non-tender, other (colostomy pink/patent with gas in bag), soft, No distended, No rebound or guarding Musculoskeletal: nl extremities to inspection, No joint tenderness Extremities: normal pulses, No calf tenderness, No cyanosis Neurological: nl mental status, nl speech, nl strength Skin: No diaphoresis, No rash or lesions Lymph: nl lymph nodes Results Result Diagram: 10/29/16 1045 10/29/16 1045 Results 24 hrs Laboratory Tests Test 10/28/16 21:20 10/28/16 22:00 10/29/16 10:40 10/29/16 10:45 White Blood Count 11.7 #H 9.0 # Red Blood Count 4.69 4.48 Hemoglobin 15.2 14.6 Hematocrit 45.8 44.3 Mean Corpuscular Volume 97.7 98.9 Mean Corpuscular Hemoglobin 32.4 32.6 Mean Corpuscular Hemoglobin Concent 33.2 33.0 Red Cell Distribution Width 13.0 12.8 Platelet Count 261 247 Mean Platelet Volume 10.7 H 10.7 H Neutrophils % 83.2 H 82.4 H Lymphocytes % 6.7 L 7.8 L Monocytes % 9.4 8.9 Eosinophils % 0.2 0.3 Basophils % 0.2 0.2 Nucleated Red Blood Cells % 0.0 0.0 Neutrophils # 9.8 H 7.4 Lymphocytes # 0.8 0.7 L Monocytes # 1.1 H 0.8 Eosinophils # 0.0 0.0 Basophils # 0.0 0.0 Nucleated Red Blood Cells # 0.0 0.0 Sodium Level 142 138 Potassium Level 4.7 4.1 Chloride Level 98 105 Carbon Dioxide Level 31 27 Anion Gap 18 H 10 # Blood Urea Nitrogen 22 H 16 Creatinine 0.91 0.76 Glucose Level 128 132 Calcium Level 10.4 H 9.1 Total Bilirubin 1.1 Direct Bilirubin 0.00 Indirect Bilirubin 1.1 Aspartate Amino Transf (AST/SGOT) 36 Alanine Aminotransferase (ALT/SGPT) 30 Alkaline Phosphatase 95 Total Protein 8.3 H Albumin 4.6 Globulin 3.70 H Albumin/Globulin Ratio 1.24 Lipase 146 Urine Color LT. YELLOW LT. YELLOW Urine Clarity CLEAR CLEAR Urine pH 7.0 6.0 Urine Specific [place] 1.010 1.015 Urine Ketones NEGATIVE 15 Urine Nitrite NEGATIVE NEGATIVE Urine Bilirubin NEGATIVE NEGATIVE Urine Urobilinogen 0.2 E.U./dL 0.2 E.U./dL Urine Leukocyte Esterase NEGATIVE NEGATIVE Urine Microscopic RBC 2-5 0-2 Urine Microscopic WBC 0-2 0-2 Urine Squamous Epithelial Cells OCCASIONAL FEW Urine Bacteria FEW FEW Urine Mucus FEW Urine Hemoglobin TRACE TRACE Urine Glucose NEGATIVE NEGATIVE Urine Total Protein NEGATIVE NEGATIVE Medications Medications Current Medications Ondansetron HCl 4 mg 4 mg Q4H PRN IV NAUSEA AND/OR VOMITING; Start 10/29/16 at 04:00 Potassium Chloride/Dextrose/ Sod Cl (D5-1/2ns + KCl 20 Meq) 1,000 ml @ 75 mls/ hr [id number] IV Last administered on 10/29/16 17:58; Admin Dose 75 MLS/HR; Start 10/29/16 at 04:00 Pantoprazole (Protonix Tab) 40 mg DAILY@06 PO ; Start 10/29/16 at 10:00; Status Future Hold Pantoprazole (Protonix Iv) 40 mg DAILY@06 IV Last administered on 10/29/16 11: 21; Admin Dose 40 MG; Start 10/29/16 at 11:00 Morphine Sulfate 2 mg 2 mg Q4H PRN IM PAIN; Start 10/29/16 at 17:30 Ceftriaxone Sodium (Rocephin) 50 ml @ 100 mls/hr Q24H IVPB Last administered on 10/29/16t 17:56; Admin Dose 100 MLS/HR; Start 10/29/16 at 18:00 NAVI LOCKHART MD Oct 29, 2016 21:10
[2016-10-29] MEDS ORDERED: morphine 2 MG INJ IV PRN (22:30)
[2016-10-30 05:52] LABS: ADD SCAN DIFF NO
[2016-10-30] MEDS ORDERED: PANTOPRAZOLE 40 MG INJ IV SCH (06:00)
[2016-10-30] MEDS: PANTOPRAZOLE 40 MG INJ IV SCH (06:00)
[2016-10-30 06:05] LABS: BASOPHILS % 0.2 % (0.0-2.0); EOSINOPHILS # 0.1 10^3/ul (0.0-0.5); EOSINOPHILS % 2.2 % (0.0-7.0); HEMATOCRIT 39.4 % (37.0-47.0); HEMOGLOBIN 12.5 g/dl (12.0-16.0); LYMPHOCYTES # 1.2 10^3/ul (0.8-2.9); LYMPHOCYTES % 18.2 % (15.0-51.0); MEAN CORPUSCULAR HEMOGLOBIN 31.7 pg (29.0-33.0); MEAN CORPUSCULAR HGB CONC 31.7 g/dl (32.0-37.0); MEAN PLATELET VOLUME 10.4 fl (7.4-10.4); MONOCYTE # 0.9 10^3/ul (0.3-0.9); MONOCYTES % 13.1 % (0.0-11.0); NEUTROPHIL # 4.3 10^3/ul (1.6-7.5); PLATELET COUNT 192 10^3/UL (140-415); RED BLOOD COUNT 3.94 10^6/ul (4.20-5.40); WHITE BLOOD COUNT 6.5 10^3/ul (4.8-10.8)
[2016-10-30 06:17] LABS: ALBUMIN 2.9 g/dl (3.3-4.9)
[2016-10-30 06:18] LABS: POTASSIUM 3.7 mmol/L (3.5-5.1)
[2016-10-30 06:20] LABS: BILIRUBIN,INDIRECT 0.5 mg/dl (0-1.1); BILIRUBIN,TOTAL 0.5 mg/dl (0.2-1.3); CREATININE 0.69 mg/dl (0.44-1.00)
[2016-10-30 06:21] LABS: ALBUMIN/GLOBULIN RATIO 1.07; CALCIUM 8.6 mg/dl (8.4-10.2); TOTAL PROTEIN 5.6 g/dl (6.1-8.1)
[2016-10-30] MEDS: D5W-0.45 NACL + KCL 20 MEQ 1,000 ML IV SCH ×2 (06:51→21:25)
[2016-10-30 08:09] VITALS: BP 158/70; RESP 20
[2016-10-30] MEDS: ACETAMINOPHEN 500 MG TAB PO PRN ×3 (08:53→21:21)
[2016-10-30] MEDS: ENOXAPARIN 30 MG/0.3 ML SYG SC SCH (09:06)
--- NOTE | 2016-10-30 09:43 | PN ---
DATE: 10/30/2016 SUBJECTIVE: The patient has mild abdominal pain, but no nausea or vomiting. OBJECTIVE: VITAL SIGNS: Temperature 97.9, blood pressure 158/70, respiration 20 per minute, O2 sats 99% on carol m air. HEENT: Head normocephalic. LUNGS: Clinically clear. HEART: S1, S2 heard with no definite gallops. ABDOMEN: Soft, mildly distended. Bowel sounds hypoactive. Colostomy functioning well. LABORATORY DATA: WBC count 6.5, hematocrit 39.4. Sodium 142, potassium 3.7. LFTs normal. ____ 0.6 . Patient states she had a colonoscopy [address] Handley which was negative for cancer. Dr. Epps's surgical consultation is much appreciated. IMPRESSION: 1. Small-bowel obstruction, slowly improving. 2. Possible urinary tract infection. Urine cultures pending. 3. Hypertension. PLAN: Will continue Rocephin clear liquids for now and follow recommendations per Dr. Epps. Incr eased activity. Dictated By: ASHLEY LA MD, SR/NTS Conf#: [id number] DID#: [id number]
[2016-10-30] MEDS: CEFTRIAXONE 1 GM/50 ML (PMX) 50 ML IVPB SCH (18:12)
--- NOTE | 2016-10-30 18:21 | PN ---
Date/Time of Note Date/Time of Note DATE: 10/30/16 TIME: 18:16 Assessment/Plan Lines/Catheters IV Catheter Type (from [facility]): Peripheral IV Miller in Place (from [facility]): No Assessment/Plan Chief Complaint/Hosp Course 1. Abdominal pain, nausea and vomiting secondary to small-bowel obstructions identified on CT scan. This is most probably from adhesive process. Improving -Hematology/Oncology and GI evaluation -CEA -Out of bed and ambulation -Chew gum -SBFT 2. History of rectal cancer. No evidence of cancer at this time. -Evaluation and followup as above. 3. Leukocytosis, most probably secondary to above. Improved 7. Gastroesophageal reflux disease (GERD) -antacid and lifestyle modification. 8. HTN -diet/med optimization Thank you, Problems: Subjective 24 Hr Interval Summary Pain persists but improved. No n/v. Gas and some stool in bag. No cough. No cp/sob. No lópez/dizziness/visual or neuro changes. No dysuria. Exam/Review of Systems Vital Signs Vitals Vital Signs Date Time Temp Pulse Resp B/P Pulse Ox O2 Delivery O2 Flow Rate FiO2 10/30/16 08:09 97.9 68 20 158/70 99 10/29/16 07:30 Room Air Intake and Output 10/29/16 10/29/16 10/30/16 15:00 23:00 07:00 Intake Total 1050 ml 1000 ml Output Total 200 ml 1100 ml Balance 850 ml -100 ml Exam Free Text/Dictation Constitutional: alert, frail, oriented, No distress, No obese Psych: nl mood/affect, No anxiety, No confusion Head: atraumatic, normocephalic Eyes: EOMI, PERRL, nl conjunctiva, No icteric ENMT: mucosa pink and moist, nl external ears & nose, nl lips & teeth Neck: non-tender, supple, No jvd Respiratory: normal air movement, No congested cough, No labored breathing Cardiovascular: regular rate and rhythm, No edema Gastrointestinal: non-tender, other (colostomy pink/patent with gas in bag), soft, No distended, No rebound or guarding Musculoskeletal: nl extremities to inspection, No joint tenderness Extremities: normal pulses, No calf tenderness, No cyanosis Neurological: nl mental status, nl speech, nl strength Skin: No diaphoresis, No rash or lesions Lymph: nl lymph nodes Results Result Diagram: 10/30/16 0518 10/30/16 0518 NAVI LOCKHART MD Oct 30, 2016 18:21
[2016-10-30 20:00] VITALS: BP 137/62; RESP 16
[2016-10-31] MEDS: ACETAMINOPHEN 500 MG TAB PO PRN ×3 (03:39→22:00)
[2016-10-31] MEDS: PANTOPRAZOLE 40 MG INJ IV SCH (05:47)
[2016-10-31 06:17] LABS: ADD SCAN DIFF NO
[2016-10-31 06:23] LABS: BASOPHILS % 0.5 % (0.0-2.0); EOSINOPHILS # 0.1 10^3/ul (0.0-0.5); EOSINOPHILS % 3.6 % (0.0-7.0); HEMATOCRIT 39.7 % (37.0-47.0); LYMPHOCYTES # 0.8 10^3/ul (0.8-2.9); LYMPHOCYTES % 21.3 % (15.0-51.0); MEAN CORPUSCULAR HEMOGLOBIN 32.5 pg (29.0-33.0); MEAN CORPUSCULAR HGB CONC 32.7 g/dl (32.0-37.0); MEAN CORPUSCULAR VOLUME 99.3 fl (82.0-101.0); MEAN PLATELET VOLUME 10.6 fl (7.4-10.4); MONOCYTE # 0.6 10^3/ul (0.3-0.9); MONOCYTES % 14.7 % (0.0-11.0); NEUTROPHIL # 2.4 10^3/ul (1.6-7.5); NEUTROPHILS % 59.6 % (39.0-77.0); PLATELET COUNT 217 10^3/UL (140-415); RED CELL DISTRIBUTION WIDTH 12.6 % (11.5-14.5); WHITE BLOOD COUNT 3.9 10^3/ul (4.8-10.8)
[2016-10-31 06:39] LABS: POTASSIUM 3.7 mmol/L (3.5-5.1)
[2016-10-31 06:41] LABS: CREATININE 0.59 mg/dl (0.44-1.00)
[2016-10-31 06:42] LABS: CALCIUM 8.8 mg/dl (8.4-10.2)
[2016-10-31 06:43] LABS: MAGNESIUM 2.1 mg/dl (1.7-2.5)
[2016-10-31 07:39] VITALS: BP 162/69; RESP 20
[2016-10-31] MEDS: ENOXAPARIN 30 MG/0.3 ML SYG SC SCH (08:36)
[2016-10-31] MEDS ORDERED: DIATR MEGLU/DIATRIZOATE SODIUM 120 ML BTL ONE (08:42)
[2016-10-31] MEDS: D5W-0.45 NACL + KCL 20 MEQ 1,000 ML IV SCH ×3 (09:20→22:01)
--- NOTE | 2016-10-31 11:06 | RADRPT ---
PROCEDURE: Small bowel follow-through. CLINICAL INDICATION: Abdomen pain. TECHNIQUE: Water-soluble contrast was administered orally and several spot and overhead radiograph s of the abdomen were obtained. COMPARISON: None. FINDINGS: On the preliminary radiograph, there is a left lower quadrant colostomy. Surgical clips are present in the pelvis. There are degenerative changes of the spine. There is no small bowel displacement or mass. The small bowel folds are normal. There is no evidence of obstruction. Transit time is normal with contrast in the colon at 2 hours. There is no evidence of obstruction.. IMPRESSION: 1. Left lower quadrant colostomy. 2. Degenerative changes of the spine. 3. No evidence of small bowel obstruction. RPTAT: QQ .Jan Cuadra MD, MD Date Time Electronically viewed and signed by .Jan Cuadra MD, MD on 10/31/2016 11:06 .R/
[2016-10-31] MEDS: LOSARTAN 50 MG TAB PO SCH (11:43)
--- NOTE | 2016-10-31 13:46 | PN ---
DATE: SUBJECTIVE: The patient continues to have low grade pain abdomen. No definite nausea. PHYSICAL EXAMINATION: VITAL SIGNS: Temperature 97.3, blood pressure 162/69, O2 saturation 98% on room air. HEENT: Head normocephalic. LUNGS: Clinically clear. HEART: S1, S2 heard with no definite gallops. ABDOMEN: Mildly distended. Bowel sounds present. Homans sign is negative. LABORATORY DATA: WBC count 3.9, hematocrit 39.7, platelet ____ . Sodium 141, potassium 3.7, BUN 66 , creatinine 0.59. Urine culture Citrobacter ____ . IMPRESSION: 1. Resolved small-bowel obstruction. 2. Mild hypertension. 3. Urinary tract infection. PLAN: We will continue ceftriaxone and gradually advance the diet and follow recommendations per Dr Venus Epps. Dictated By: ASHLEY LA MD, SR/LINA Conf#: [id number] DID#: [id number]
[2016-10-31] MEDS: CEFTRIAXONE 1 GM/50 ML (PMX) 50 ML IVPB SCH (17:00)
--- NOTE | 2016-10-31 18:51 | PN ---
Date/Time of Note Date/Time of Note DATE: 10/31/16 TIME: 18:46 Assessment/Plan Lines/Catheters IV Catheter Type (from [facility]): Peripheral IV Miller in Place (from [facility]): No Assessment/Plan Chief Complaint/Hosp Course 1. Abdominal pain, nausea and vomiting secondary to small-bowel obstructions identified on CT scan. SBFT negative. Resolved. -Out of bed and ambulation -Diet as tolerated -D/C planning per PMD 2. History of rectal cancer. No evidence of cancer at this time. CEA normal range. -Evaluation and followup as above. 3. Leukocytosis, most probably secondary to above. Resolved. 7. Gastroesophageal reflux disease (GERD) -antacid and lifestyle modification. 8. HTN -diet/med optimization Thank you, Problems: Subjective 24 Hr Interval Summary SBFT negative. Pain improving. No n/v. Bowel function. No cough. No cp/ sob. No lópez/dizziness/visual or neuro changes. No dysuria. Exam/Review of Systems Vital Signs Vitals Vital Signs Date Time Temp Pulse Resp B/P Pulse Ox O2 Delivery O2 Flow Rate FiO2 10/31/16 07:39 97.3 60 20 162/69 98 10/29/16 07:30 Room Air Intake and Output 10/30/16 10/30/16 10/31/16 15:00 23:00 07:00 Intake Total 2550 ml 480 ml Output Total 1200 ml Balance 2550 ml -720 ml Exam Constitutional: alert, oriented Psych: nl mood/affect, no complaints Head: atraumatic, normocephalic Eyes: EOMI, nl conjunctiva, nl lids, nl sclera ENMT: mucosa pink and moist, nl external ears & nose, nl lips & teeth, nl nasal mucosa & septum Neck: non-tender, supple Respiratory: normal air movement Cardiovascular: nl pulses, regular rate and rhythm, No edema Gastrointestinal: non-tender, soft, No distended, No rebound or guarding Musculoskeletal: nl extremities to inspection, No joint tenderness Extremities: normal pulses, No calf tenderness, No cyanosis Neurological: nl mental status, nl speech Skin: nl turgor, No diaphoresis, No rash or lesions Lymph: nl lymph nodes Results Free Text/Dictation SBFT: 1. Left lower quadrant colostomy. 2. Degenerative changes of the spine. 3. No evidence of small bowel obstruction. CEA 0.6 Result Diagram: 10/31/16 0540 10/31/16 0540 NAVI LOCKHART MD Oct 31, 2016 18:51
[2016-10-31 20:13] VITALS: BP 146/64; RESP 19
[2016-11-01] MEDS: D5W-0.45 NACL + KCL 20 MEQ 1,000 ML IV SCH (05:25)
[2016-11-01] MEDS: ACETAMINOPHEN 500 MG TAB PO PRN (05:32)
[2016-11-01] MEDS: PANTOPRAZOLE 40 MG INJ IV SCH (05:32)
[2016-11-01 07:39] VITALS: BP 135/65; RESP 18
[2016-11-01] MEDS: LOSARTAN 50 MG TAB PO SCH (08:30)
[2016-11-01] MEDS: ENOXAPARIN 30 MG/0.3 ML SYG SC SCH (08:37)
--- NOTE | 2016-11-01 10:02 | PN ---
Date/Time of Note Date/Time of Note DATE: 11/01/16 TIME: 10:01 Assessment/Plan Lines/Catheters IV Catheter Type (from [facility]): Saline Lock Miller in Place (from [facility]): No Assessment/Plan Chief Complaint/Hosp Course 1. Abdominal pain, nausea and vomiting secondary to small-bowel obstructions identified on CT scan. SBFT negative. Resolved. -Out of bed and ambulation -Diet as tolerated -D/C planning per PMD today 2. History of rectal cancer. No evidence of cancer at this time. CEA normal range. -Evaluation and followup as above. 3. Leukocytosis, most probably secondary to above. Resolved. 7. Gastroesophageal reflux disease (GERD) -antacid and lifestyle modification. 8. HTN -diet/med optimization Thank you, Problems: Subjective 24 Hr Interval Summary SBFT negative. Pain improving. No n/v. Bowel function. No cough. No cp/ sob. No lópez/dizziness/visual or neuro changes. No dysuria. Exam/Review of Systems Vital Signs Vitals Vital Signs Date Time Temp Pulse Resp B/P Pulse Ox O2 Delivery O2 Flow Rate FiO2 11/01/16 07:39 97.9 59 18 135/65 97 10/29/16 07:30 Room Air Intake and Output 10/31/16 10/31/16 11/01/16 14:59 22:59 06:59 Intake Total 2240 ml 1250 ml Output Total 1750 ml Balance 490 ml 1250 ml Exam Free Text/Dictation Constitutional: alert, oriented Psych: nl mood/affect, no complaints Head: atraumatic, normocephalic Eyes: EOMI, nl conjunctiva, nl lids, nl sclera ENMT: mucosa pink and moist, nl external ears & nose, nl lips & teeth, nl nasal mucosa & septum Neck: non-tender, supple Respiratory: normal air movement Cardiovascular: nl pulses, regular rate and rhythm, No edema Gastrointestinal: non-tender, soft, No distended, No rebound or guarding Musculoskeletal: nl extremities to inspection, No joint tenderness Extremities: normal pulses, No calf tenderness, No cyanosis Neurological: nl mental status, nl speech Skin: nl turgor, No diaphoresis, No rash or lesions Lymph: nl lymph nodes Results Result Diagram: 10/31/16 0540 10/31/16 0540 NAVI LOCKHART MD Nov 01, 2016 10:02
--- NOTE | 2016-11-01 11:47 | DS ---
DATE OF ADMISSION: 10/29/2016 DATE OF DISCHARGE: 11/01/2016 FINAL DIAGNOSES: 1. Low-grade small-bowel obstruction, resolved. 2. Prior history of colon CA status post proctocolectomy with no evidence of recurrence, status pos t recent colonoscopy negative. 3. Hypertension, well compensated. HOSPITAL COURSE: The patient is a 76-year-old lady well known to me from previous history of colon resection, status post colostomy, presenting with severe pain in the lower abdomen with vomiting. C olostomy had been functioning well. The patient was placed on bowel rest after a CT scan showed dil ated loops of small bowel with air-fluid levels, and the patient improved with bowel rest, IV fluids . The patient was seen by Dr. Epps from surgical standpoint, and her blood pressure went up and patient was placed on Losartan patient. The patient does not want to take Losartan. Blood pressure 135/65 on November 01. Small-bowel follow-through was negative. Colostomy was functioning well. T he patient was discharged home in much improved condition to be followed in the office over the cour se of next 2 weeks. DISCHARGE CONDITION: Much improved. Dictated By: ASHLEY LA MD SR/NTS Conf#: [id number] DID#: [id number]
[2016-11-01] MEDS ORDERED: ACETAMINOPHEN 325 MG TAB PO ONE (13:00)
== END 2016-11-01 13:55 | disposition home or self-care (01) | DRG 389 ==
LOC: E/R 19:33 → MS2 10-29 02:16
PROVIDERS: ADMIT Internal Medicine; ATTEND Internal Medicine
DX: K56.60 Unspecified intestinal obstruction (principal); N39.0 Urinary tract infection, site not specified; I10 Essential (primary) hypertension; D72.829 Elevated white blood cell count, unspecified; Z93.3 Colostomy status; K21.9 Gastro-esophageal reflux disease without esophagitis; Z88.0 Allergy status to penicillin; Z90.49 Acquired absence of other specified parts of digestive tract; Z90.710 Acquired absence of both cervix and uterus; Z91.81 History of falling; Z85.038 Personal history of other malignant neoplasm of large intestine
CPT/HCPCS: 36415; 74010; 74177; 74250; 80048; 80053; 81001; 81003; 82378; 83690; 83735; 85025; 87086; 93005; 96365; 96375; C9113; J0131; J0696; J1650; J2270; J2405; J3480; J7030; Q9967

== ENCOUNTER 2017-03-04 16:55 | Emergency (ER) | payer MEDICARE, OTHER ==
[~2017-03-04] VITALS: Wt 43.0 kg
[2017-03-04] MEDS ORDERED: CETI10CA PO (17:19)
[2017-03-04] MEDS ORDERED: AZIT250T94 PO (17:19)
--- NOTE | 2017-03-04 17:21 | ERD ---
ER Documentation Chief Complaint Date/Time DATE: 03/04/17 TIME: 17:20 Chief Complaint L EAR PAIN X 5 DAYS HPI 76-year-old female presents with left ear discomfort for last 5 days. She was prescribed Cortisporin drops by primary doctor. She feels like the drops are stuck inside of her ear she has decreased hearing. She denies any fevers, congestion, bleeding or discharge. ROS All systems reviewed and are negative except as per history of present illness. Medications Home Meds Active Scripts Cetirizine Hcl* (Zyrtec*) 10 Mg Capsule, 10 MG PO DAILY, #10 TAB.CHEW Prov:TRINA HARTLEY MD 03/04/17 Azithromycin* (Zithromax*) 250 Mg Tablet, 250 MG PO .ZPACK DIRECTED, #6 TAB TAKE 500 MG (2 TABS) THE FIRST DAY THEN 250 MG (1 TAB) DAYS 2-5 Prov:TRINA HARTLEY MD 03/04/17 Allergies Allergies: Coded Allergies: Penicillins (Verified Allergy, Mild, VOMITING/DIZZINESS/SOB, 08/21/16) ciprofloxacin (Verified Allergy, Unknown, 08/21/16) PMhx/Soc History of Surgery: Yes (hysterectomy, colostomy, patial colectomy) Anesthesia Reaction: No Hx Neurological Disorder: No Hx Respiratory Disorders: No Hx Cardiac Disorders: Yes (HTN ) Hx Psychiatric Problems: No Hx Alcohol Use: No Hx Substance Use: No Hx Tobacco Use: No Physical Exam Vitals Vital Signs Date Time Temp Pulse Resp B/P Pulse Ox O2 Delivery O2 Flow Rate FiO2 03/04/17 16:59 98.0 78 18 139/60 99 Physical Exam Const: [] Alert, [id number] per Head: Atraumatic Eyes: Normal Conjunctiva ENT: Normal External Ears, Nose and Mouth. TMs show clear fluid with decreased light reflex. There is some whitish exudate on the left TM. There is no significant cerumen and no pain with passive range of motion is no mastoid tenderness. Neck: Full range of motion..~ No meningismus. Resp: Clear to auscultation bilaterally Cardio: Regular rate and rhythm, no murmurs Abd: Soft, non tender, non distended. Normal bowel sounds Skin: No petechiae or rashes Back: No midline or flank tenderness Ext: No cyanosis, or edema Neur: Awake and alert Psych: Normal Mood and Affect Procedures/MDM Patient has signs and symptoms of likely serous otitis. There is no evidence of otitis externa, mastoiditis, TM rupture. Patient will be treated with Zithromax, Zyrtec instructions to follow-up with ENT for persistent symptoms. The patient was stable with no new complaints during the ER course. Clinically, there is no current evidence to suggest meningitis, sepsis, acute abdomen, pneumonia, acute coronary syndrome, pulmonary embolism, or any other emergent condition appearing to require further evaluation or hospitalization. The patient should certainly return for any new or worsening symptoms per the aftercare instructions. They should otherwise follow-up with her primary care doctor for reevaluation this week. Departure Diagnosis: Primary Impression: Left ear pain Condition: Stable Patient Instructions: Common Middle Ear Problems Referrals: JOANN REID MD,ETHAN CARBAJAL,IVIS AGUILLON MD, MD, [place] Additional Instructions: See ear nose throat specialist for persistent symptoms. May need authorization from primary doctor. TRINA HARTLEY MD Mar 04, 2017 17:21
== END 2017-03-04 17:31 | disposition home or self-care (01) ==
LOC: FTE 16:55
DX: H92.02 Otalgia, left ear (principal); I10 Essential (primary) hypertension
CPT/HCPCS: 99283

== ENCOUNTER 2017-03-29 17:20 | Inpatient (IN) | payer MEDICARE, OTHER ==
[~2017-03-29] VITALS: Ht 144.8 cm; Wt 41.0 kg
[~2017-03-29 17:20] MED LIST changes: +AZIT250T94 PO; +CETI10CA PO; -POLY17PO6 PO
[2017-03-29] MEDS ORDERED: CEFTRIAXONE 1 GM/50 ML (PMX) 50 ML IVPB STA (19:55)
[2017-03-29] MEDS ORDERED: SODIUM CHLORIDE 0.9% 1L BAG IV* STA (19:55)
--- NOTE | 2017-03-29 19:58 | ERD ---
ER Documentation Chief Complaint Date/Time DATE: 03/29/17 TIME: 19:56 Chief Complaint FEELING WEAK AND TIRED,VOMITING X 2 DAYS,DENIES PAIN AT THIS TIME HPI Patient is a 76-year-old female who presents with gradual onset, constant, moderate generalized weakness and fatigue associated with chills for the last 2 days. She reports having several episodes of nonbloody nonbilious emesis today. She denies constipation or diarrhea. She denies abdominal pain. She denies cough, sore throat, headache. She denies dysuria. She reports a history of frequent UTIs. She has history of colon cancer and previously received chemotherapy, but has not recently received chemotherapy. ROS All systems reviewed and are negative except as per history of present illness. Medications Home Meds Active Scripts Cetirizine Hcl* (Zyrtec*) 10 Mg Capsule, 10 MG PO DAILY, #10 TAB.CHEW Prov:TRINA HARTLEY MD 03/04/17 Reported Medications Calcium Carbonate/Vitamin D3 (Calcium 500 mg Chewable Tablet) 1 Each Tab.chew, 1 EACH PO BID, TAB.CHEW 03/29/17 Vitamin E* (Vitamin E*) 400 Unit Capsule, 400 UNIT PO DAILY, CAP 03/29/17 Discontinued Scripts Azithromycin* (Zithromax*) 250 Mg Tablet, 250 MG PO .ZPACK DIRECTED, #6 TAB TAKE 500 MG (2 TABS) THE FIRST DAY THEN 250 MG (1 TAB) DAYS 2-5 Prov:TRINA HARTLEY MD 03/04/17 Allergies Allergies: Coded Allergies: Penicillins (Verified Allergy, Mild, VOMITING/DIZZINESS/SOB, 03/29/17) ciprofloxacin (Verified Allergy, Unknown, 03/29/17) PMhx/Soc Past medical history: Colon cancer Past surgical history: Colon resection and colostomy Social history: Denies cancer tobacco or alcohol History of Surgery: Yes (hysterectomy, colostomy, patial colectomy) Anesthesia Reaction: No Hx Neurological Disorder: No Hx Respiratory Disorders: No Hx Cardiac Disorders: Yes (HTN ) Hx Psychiatric Problems: No Hx Alcohol Use: No Hx Substance Use: No Hx Tobacco Use: No FmHx Family History: No coronary disease, No diabetes Physical Exam Vitals Vital Signs Date Time Temp Pulse Resp B/P Pulse Ox O2 Delivery O2 Flow Rate FiO2 03/29/17 20:16 98.4 91 23 153/71 100 Room Air 03/29/17 17:23 100.3 102 20 138/64 98 Physical Exam Const: Alert, no acute distress, mild rigors Head: Atraumatic Eyes: Normal Conjunctiva, No pallor, no icterus ENT: Normal External Ears, Nose and Mouth. Mucous membranes tacky Neck: Full range of motion..~ No meningismus. Resp: Clear to auscultation bilaterally, No wheezes, no rales Cardio: Mild tachycardia, regular rhythm, no murmurs Abd: Soft, non tender, non distended. Colostomy in left lower quadrant with small amount of formed brown stool. Skin: No petechiae or rashes Back: No midline or flank tenderness Ext: No cyanosis, or edema Neur: Awake and alert, Cranial nerves II through XII intact bilaterally, strength and sensation full in 4 extremities. Psych: Normal Mood and Affect Result Diagram: 03/29/17199903/29/171999 Results 24 hrs Laboratory Tests Test 03/29/17 20:00 03/29/17 20:29 03/29/17 22:20 White Blood Count 11.910^3/ul Red Blood Count 4.1510^6/ul Hemoglobin 13.2g/dl Hematocrit 40.4% Mean Corpuscular Volume 97.3fl Mean Corpuscular Hemoglobin 31.8pg Mean Corpuscular Hemoglobin Concent 32.7g/dl Red Cell Distribution Width 12.5% Platelet Count 48480^3/UL Mean Platelet Volume 10.1fl Neutrophils % 81.2% Lymphocytes % 5.6% Monocytes % 12.7% Eosinophils % 0.0% Basophils % 0.2% Nucleated Red Blood Cells % 0.0/100WBC Neutrophils # (Manual) 9.710^3/ul Lymphocytes # 0.710^3/ul Monocytes # 1.510^3/ul Eosinophils # 0.010^3/ul Basophils # 0.010^3/ul Nucleated Red Blood Cells # 0.010^3/ul Prothrombin Time 13.6Sec Prothrombin Time Ratio 1.1 INR International Normalized Ratio 1.04 Activated Partial Thromboplast Time 29.7Sec Sodium Level 135mmol/L Potassium Level 4.3mmol/L Chloride Level 100mmol/L Carbon Dioxide Level 22mmol/L Anion Gap 17 Blood Urea Nitrogen 20mg/dl Creatinine 0.85mg/dl Glucose Level 106mg/dl Lactic Acid Level 2.6mmol/L Calcium Level 9.3mg/dl Total Bilirubin 0.8mg/dl Direct Bilirubin 0.00mg/dl Indirect Bilirubin 0.8mg/dl Aspartate Amino Transf (AST/SGOT) 59IU/L Alanine Aminotransferase (ALT/SGPT) 35IU/L Alkaline Phosphatase 93IU/L Troponin I < 0.012ng/ml Total Protein 9.1g/dl Albumin 4.6g/dl Globulin 4.50g/dl Albumin/Globulin Ratio 1.02 Bedside Glucose 100mg/dL Urine Color YELLOW Urine Clarity CLEAR Urine pH 6.0 Urine Specific [place] 1.014 Urine Ketones 1+mg/dL Urine Nitrite POSITIVEmg/dL Urine Bilirubin NEGATIVEmg/dL Urine Urobilinogen NEGATIVEmg/dL Urine Leukocyte Esterase 2+Isabella/ul Urine Microscopic RBC 7/HPF Urine Microscopic WBC 45/HPF Urine Bacteria FEW/HPF Urine Mucus FEW/HPF Urine Hemoglobin 2+mg/dL Urine Glucose NEGATIVEmg/dL Urine Total Protein 1+mg/dl Current Medications Medications (Trade) Dose Ordered Sig/Sweta Route PRN Reason Start Time Stop Time Status Last Admin Dose Admin Sodium Chloride 1270 ml 1,270 ml BOLUS OVER 2 HOURS STAT IV* 03/29/17 19:55 03/29/17 19:56 DC 03/29/17 20:13 Ceftriaxone Sodium (Rocephin) 50 ml @ 100 mls/hr ONCE STAT IVPB 03/29/17 19:55 03/29/17 20:24 DC 03/29/17 19:55 Procedures/MDM EKG read by me: Time 2027, rate 85 Rhythm: Normal sinus Exira: Normal Intervals: Normal ST-T waves: no ischemic changes Ectopy: No Q-waves: No Impression: No evidence of ischemia or arrhythmia MDM: Patient is a 76-year-old female with history of colon cancer status post colostomy, with history of recurrent pansensitive UTIs who presents to the ER with fever and chills as well as dysuria for 2 days. She is found to have a urinary tract infection. In the ER she has a fever and a slightly elevated lactic acid. She has no significant electrolyte abnormality. She is given IV fluids and antibiotics. Cultures were sent. On reassessment, the patient states that she feels slightly better but is still having rigors and does not feel comfortable going home. Given her age and comorbidities, I believe is best to admit her to observation status for further care with possible discharge tomorrow if stabilized. Departure Diagnosis: Primary Impression: Sepsis Sepsis type: sepsis due to unspecified organism Qualified Code: A41.9 - Sepsis, due to unspecified organism Additional Impressions: UTI (urinary tract infection) Urinary tract infection type: site unspecified Hematuria presence: without hematuria Qualified Code: N39.0 - Urinary tract infection without hematuria, site unspecified Vomiting Vomiting type: unspecified Vomiting Intractability: non-intractable Nausea presence: with nausea Qualified Code: R11.2 - Non-intractable vomiting with nausea, unspecified vomiting type Condition: JABARI Gonzalez MD Mar 29, 2017 19:58
[2017-03-29 20:42] LABS: ABNORMAL IP MESSAGE 1; BASOPHILS % 0.2 % (0.0-2.0); HEMATOCRIT 40.4 % (37.0-47.0); HEMOGLOBIN 13.2 g/dl (12.0-16.0); LYMPHOCYTES # 0.7 10^3/ul (0.8-2.9); LYMPHOCYTES % 5.6 % (15.0-51.0); MEAN CORPUSCULAR HEMOGLOBIN 31.8 pg (29.0-33.0); MEAN CORPUSCULAR HGB CONC 32.7 g/dl (32.0-37.0); MEAN CORPUSCULAR VOLUME 97.3 fl (82.0-101.0); MEAN PLATELET VOLUME 10.1 fl (7.4-10.4); MONOCYTE # 1.5 10^3/ul (0.3-0.9); MONOCYTES % 12.7 % (0.0-11.0); NEUTROPHILS % 81.2 % (39.0-77.0); PLATELET COUNT 193 10^3/UL (140-415); RED BLOOD COUNT 4.15 10^6/ul (4.20-5.40); RED CELL DISTRIBUTION WIDTH 12.5 % (11.5-14.5); WHITE BLOOD COUNT 11.9 10^3/ul (4.8-10.8)
[2017-03-29 20:54] LABS: INR 1.04; PROTIME 13.6 Sec (12.2-14.2); PT RATIO 1.1
[2017-03-29 20:55] LABS: PARTIAL THROMBOPLASTIN TIME 29.7 Sec (25.0-35.0)
[2017-03-29 20:57] LABS: ALANINE AMINOTRANSFERASE 35 IU/L (13-69); ALBUMIN 4.6 g/dl (3.3-4.9); ALBUMIN/GLOBULIN RATIO 1.02; ALKALINE PHOSPHATASE 93 IU/L (42-121); ASPARTATE AMINO TRANSFERASE 59 IU/L (15-46); BILIRUBIN,INDIRECT 0.8 mg/dl (0-1.1); BILIRUBIN,TOTAL 0.8 mg/dl (0.2-1.3); BLOOD UREA NITROGEN 20 mg/dl (7-20); CALCIUM 9.3 mg/dl (8.4-10.2); CARBON DIOXIDE 22 mmol/L (21-31); CHLORIDE 100 mmol/L (97-110); CREATININE 0.85 mg/dl (0.44-1.00); GLUCOSE 106 mg/dl (70-220); SODIUM 135 mmol/L (135-144); TOTAL PROTEIN 9.1 g/dl (6.1-8.1)
[2017-03-29] MEDS ORDERED: VITA400C15 PO (20:58)
[2017-03-29 20:59] LABS: ANION GAP 17 (8-16); POTASSIUM 4.3 mmol/L (3.5-5.1)
[2017-03-29] MEDS ORDERED: CALC-686 PO (20:59)
[2017-03-29 21:01] LABS: POSITIVE DIFF @See below
[2017-03-29 21:08] LABS: TROPONIN-I < 0.012 ng/ml (0.00-0.12)
--- NOTE | 2017-03-29 21:24 | RADRPT ---
PROCEDURE: Portable chest x-ray. CLINICAL INDICATION: 76 years of age, female. Possible sepsis. TECHNIQUE: Portable AP view of the chest. COMPARISON: March 26, 2015 FINDINGS: Atherosclerosis and tortuosity of thoracic aorta. Borderline heart size. Mediastinal contours are st able. Lungs are clear. Negative for pleural effusion or pneumothorax. No acute bony abnormality. IMPRESSION: Negative for evidence of acute chest process. Negative for an infiltrate. RPTAT: HCTS Physician Sumi Date Time Electronically viewed and signed by Physician Sumi on 03/29/2017 21:24 CS/
[2017-03-29 22:41] LABS: ADD UMIC YES; UR ASCORBIC ACID NEGATIVE (NEGATIVE); UR BACTERIA FEW /HPF (NONE SEEN); UR BILIRUBIN (Dip) NEGATIVE (NEGATIVE); UR BLOOD (Dip) 2+ mg/dL (NEGATIVE); UR CLARITY CLEAR (CLEAR); UR COLOR YELLOW (YELLOW); UR GLUCOSE (Dip) NEGATIVE (NEGATIVE); UR KETONES (Dip) 1+ mg/dL (NEGATIVE); UR LEUKOCYTE ESTERASE (Dip) 2+ Leu/ul (NEGATIVE); UR MUCUS FEW /HPF (NONE SEEN); UR NITRITE (Dip) POSITIVE (NEGATIVE); UR RBC 7 /HPF (0-5); UR SPECIFIC GRAVITY (Dip) 1.014 (1.003-1.030); UR TOTAL PROTEIN (Dip) 1+ mg/dl (NEGATIVE); UR UROBILINOGEN (Dip) NEGATIVE (NEGATIVE)
[2017-03-30] MEDS ORDERED: ACETAMINOPHEN 325 MG TAB PO PRN
[2017-03-30 00:36] VITALS: TEMP 98.6
[2017-03-30 01:00] VITALS: Ht 144.8 cm; Wt 41.0 kg
[2017-03-30 01:22] VITALS: BP 149/63; RESP 16
[2017-03-30] MEDS ORDERED: ONDANSETRON 4 MG INJ IV PRN ×2 (02:00)
[2017-03-30] MEDS ORDERED: ZOLPIDEM 5 MG TAB PO PRN (02:00)
[2017-03-30 07:30] VITALS: BP 129/59; RESP 18
[2017-03-30] MEDS: DEXTROSE 5%-0.45% NACL 1,000 ML IV SCH (09:38)
--- NOTE | 2017-03-30 10:24 | HP ---
DATE OF ADMISSION: 03/29/2017 HISTORY OF PRESENT ILLNESS: The patient is a 76-year-old lady, well known to me from previous followup, with history of recurrent urinary tract infection who presented with severe weakness with fatigue and chills for 2 days, started having vomiting yesterday, was evaluated in the Emergency Room and found to have urinary tract infection, and was admitted. PAST MEDICAL HISTORY: The patient was last hospitalized in October 2016 for a partial small bowel obstruction. She has had prior history of colon resection status post colostomy and she had a prior partial proctocolectomy 16 years prior. Other surgery includes hysterectomy. REVIEW OF SYSTEMS: HEAD: No history of headache, focal weakness or numbness. The patient has generalized weakness. EYES: No blurry vision or glaucoma. ENT: Noncontributory. NECK: No history of thyroid disease. CHEST: No bronchitis or asthma. The patient does not smoke HEART: No PND, orthopnea or palpitations. GASTROINTESTINAL: History of colon cancer, as above. No history of recurrence. Status post several hospitalizations for small bowel obstruction, which resolved with conservative management. GENITOURINARY: History of urinary tract infection. FAMILY HISTORY: Negative for hypertension, diabetes, or cancer. SOCIAL HISTORY: Does not smoke or drink. PHYSICAL EXAMINATION: GENERAL APPEARANCE: The patient is an average-built female who is in no acute distress. VITAL SIGNS: Temperature initially was 100.3, blood pressure 138/64, O2 sat 98 percent on room air. HEENT: Head normocephalic. Mild pallor with cyanosis. NECK: Supple. No thyromegaly. No lymphadenopathy. CHEST: Clinically clear. HEART: S1, S2 with no rub or gallop. ABDOMEN: Soft, nontender. Colostomy functioning well. Negative flank tenderness. EXTREMITIES: No edema. Homans sign is negative. NEUROLOGIC: No localizing or lateralizing signs. LABORATORY DATA: Initial WBC count 11.9, hematocrit 40.4, platelet count 193,000. Potassium 4.3. Lactic acid is 2.6. UA shows positive glucose and leukocyte esterase with few bacteria. Positive for nitrites. IMPRESSION: 1. Urinary tract infection with possible sepsis. 2. Status post colectomy and colostomy for colon cancer. PLAN: We will follow the patient for mild dehydration and provide antibiotic therapy. Re-evaluate antibiotics after blood and urine culture reports are back. Dictated By: Homer Phillip MD /seven/evelin /Document#: [id number]
[2017-03-30 14:10] VITALS: BP 128/58; RESP 16
[2017-03-30] MEDS: ACETAMINOPHEN 500 MG TAB PO PRN (18:25)
[2017-03-30] MEDS: CEFTRIAXONE 1 GM/50 ML (PMX) 50 ML IVPB SCH (20:35)
[2017-03-30 20:40] VITALS: BP 109/52; RESP 19
[2017-03-31 02:40] VITALS: BP 132/60; RESP 18
[2017-03-31] MEDS: DEXTROSE 5%-0.45% NACL 1,000 ML IV SCH (05:20)
[2017-03-31 05:23] LABS: ABNORMAL IP MESSAGE 1; BASOPHILS % 0.3 % (0.0-2.0); EOSINOPHILS % 0.1 % (0.0-7.0); HEMATOCRIT 37.2 % (37.0-47.0); HEMOGLOBIN 12.5 g/dl (12.0-16.0); LYMPHOCYTES # 0.6 10^3/ul (0.8-2.9); LYMPHOCYTES % 7.8 % (15.0-51.0); MEAN CORPUSCULAR HEMOGLOBIN 32.1 pg (29.0-33.0); MEAN CORPUSCULAR HGB CONC 33.6 g/dl (32.0-37.0); MEAN CORPUSCULAR VOLUME 95.4 fl (82.0-101.0); MEAN PLATELET VOLUME 10.5 fl (7.4-10.4); MONOCYTE # 1.4 10^3/ul (0.3-0.9); MONOCYTES % 18.6 % (0.0-11.0); NEUTROPHILS % 72.7 % (39.0-77.0); PLATELET COUNT 184 10^3/UL (140-415); RED CELL DISTRIBUTION WIDTH 12.3 % (11.5-14.5); WHITE BLOOD COUNT 7.5 10^3/ul (4.8-10.8)
[2017-03-31 05:41] LABS: POSITIVE DIFF @See below
[2017-03-31 05:42] LABS: CALCIUM 8.4 mg/dl (8.4-10.2); CREATININE 0.7 mg/dl (0.44-1.00); MAGNESIUM 2.3 mg/dl (1.7-2.5); POTASSIUM 3.9 mmol/L (3.5-5.1)
[2017-03-31 07:30] VITALS: BP 118/60; RESP 18
[2017-03-31] MEDS: ENOXAPARIN 30 MG/0.3 ML SYG SC SCH (09:23)
[2017-03-31] MEDS: ACETAMINOPHEN 500 MG TAB PO PRN ×2 (09:27→18:51)
[2017-03-31 10:30] VITALS: PULSE 76
[2017-03-31 14:06] VITALS: BP 98/53; RESP 16
--- NOTE | 2017-03-31 18:11 | PN ---
DATE: 03/31/2017 SUBJECTIVE DATA: The patient overall feels better. PHYSICAL EXAMINATION: VITAL SIGNS: Temperature 97.6, blood pressure 118/60, respiratory 20 per minute. HEENT: Head, normocephalic. CHEST: Clinically clear. HEART: S1, S2. No definite gallops. ABDOMEN: Abdomen is soft, nontender, no hepatosplenomegaly. Mild flank tenderness present. LABORATORY DATA: Urine cultures growing gram-negative chandrakant. IMPRESSION: 1. Urinary tract infection with leukocytosis. 2. Status post colectomy and colostomy for colon cancer. 3. Mild dehydration. PLAN: Continue IV hydration, Rocephin and re-evaluate the patient in the a.m. Dictated By: Homer Phillip MD /seven/kaylan /Document#: [id number]
[2017-03-31 20:01] VITALS: BP 114/59; RESP 18
[2017-03-31] MEDS: CEFTRIAXONE 1 GM/50 ML (PMX) 50 ML IVPB SCH (20:28)
[2017-04-01] MEDS: DEXTROSE 5%-0.45% NACL 1,000 ML IV SCH ×2 (01:30→04:17)
[2017-04-01 03:04] VITALS: BP 132/62; RESP 18
[2017-04-01 05:24] LABS: BASOPHILS % 0.3 % (0.0-2.0); EOSINOPHILS % 0.6 % (0.0-7.0); HEMATOCRIT 39.1 % (37.0-47.0); LYMPHOCYTES # 0.8 10^3/ul (0.8-2.9); MEAN CORPUSCULAR HGB CONC 33.2 g/dl (32.0-37.0); MEAN CORPUSCULAR VOLUME 96.3 fl (82.0-101.0); MEAN PLATELET VOLUME 10.3 fl (7.4-10.4); MONOCYTE # 0.9 10^3/ul (0.3-0.9); MONOCYTES % 25.8 % (0.0-11.0); PLATELET COUNT 202 10^3/UL (140-415); RED BLOOD COUNT 4.06 10^6/ul (4.20-5.40); RED CELL DISTRIBUTION WIDTH 12.2 % (11.5-14.5); WHITE BLOOD COUNT 3.6 10^3/ul (4.8-10.8)
[2017-04-01 06:12] LABS: CALCIUM 8.7 mg/dl (8.4-10.2); CREATININE 0.73 mg/dl (0.44-1.00)
[2017-04-01 07:30] VITALS: BP 142/65; RESP 18
[2017-04-01] MEDS: ENOXAPARIN 30 MG/0.3 ML SYG SC SCH (09:24)
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
[2017-04-01 14:12] VITALS: BP 126/67; RESP 18
== END 2017-04-01 15:25 | disposition home or self-care (01) | DRG 690 ==
LOC: E/R 17:20 → PP2 23:35 → OBSVTOIN 03-30 17:35
PROVIDERS: ADMIT Internal Medicine; ATTEND Internal Medicine
DX: N39.0 Urinary tract infection, site not specified (principal); E86.0 Dehydration; B96.20 Unspecified Escherichia coli [E. coli] as the cause of diseases classified elsewhere; K29.70 Gastritis, unspecified, without bleeding; Z93.3 Colostomy status; Z85.038 Personal history of other malignant neoplasm of large intestine
CPT/HCPCS: 71010; 80048; 80053; 81001; 82962; 83605; 83735; 84484; 85025; 85610; 85730; 87040; 87086; 93005; 96374; 99217; G0378; J0696; J1650; J7030; J7042

== ENCOUNTER 2018-01-22 12:02 | Emergency (ER) | END 2018-01-22 16:38 | disposition home or self-care (01) ==

== ENCOUNTER 2018-11-17 14:23 | Emergency (ER) | payer MEDICARE, OTHER ==
[~2018-11-17] VITALS: Wt 44.9 kg
[2018-11-17] MEDS ORDERED: HYDR25TA6 PO (15:34)
[2018-11-17] MEDS ORDERED: IBUP-1542 PO (15:34)
[2018-11-17 15:52] VITALS: BP 165/75; PULSE 75; RESP 20
--- NOTE | 2018-11-17 16:43 | ERD ---
ER Documentation Chief Complaint Chief Complaint lópez, pt hard of hearing HPI Patient is a 78-year-old female with hypertension who presents with headache. The patient said that she has been having a headache and "hearing a noise in her head" for the past 3 weeks. She has had headache for the past 2 years however. She is in no distress. She has had no recent trauma. Upon review of old medical records the patient has multiple visits to the ER for various complaints. Her primary doctor is Dr. Phillip. She reports needing something for her blood pressure. ROS All systems reviewed and are negative except as per history of present illness. Medications Home Meds Active Scripts Hydrochlorothiazide* (Hydrochlorothiazide*) 25 Mg Tab, 25 MG PO DAILY, #30 TAB Prov:LONG PRESCOTT MD 11/17/18 Ibuprofen* (Motrin*) 600 Mg Tab, 600 MG PO Q6H PRN for PAIN AND OR ELEVATED TEMP , #30 TAB Prov:LONG PRESCOTT MD 11/17/18 Allergies Allergies: Coded Allergies: Penicillins (Verified Allergy, Mild, VOMITING/DIZZINESS/SOB, 01/22/18) ciprofloxacin (Verified Allergy, Unknown, 01/22/18) levofloxacin (Verified Allergy, Unknown, 01/22/18) PMhx/Soc History of Surgery: Yes (PARTIAL COLECTOMY) Anesthesia Reaction: No Hx Neurological Disorder: No Hx Respiratory Disorders: No Hx Cardiac Disorders: Yes (HTN) Hx Psychiatric Problems: No Hx Miscellaneous Medical Probl: No Hx Alcohol Use: No Hx Substance Use: No Hx Tobacco Use: No Smoking Status: Never smoker FmHx Family History: No diabetes Physical Exam Vitals Vital Signs Date Temp Pulse Resp B/P (MAP) Pulse Ox O2 O2 Flow FiO2 Time Delivery Rate 11/17/18 98.0 75 20 165/75 99 Room Air 15:52 (105) 11/17/18 97.9 71 20 168/73 97 14:38 (104) Physical Exam Const: No acute distress Head: Atraumatic Eyes: Normal Conjunctiva ENT: Normal External Ears, Nose and Mouth. Neck: Full range of motion. No meningismus. Resp: Clear to auscultation bilaterally Cardio: Regular rate and rhythm, no murmurs Abd: Soft, non tender, non distended. Normal bowel sounds Skin: No petechiae or rashes Back: No midline or flank tenderness Ext: No cyanosis, or edema Neur: Awake and alert, cranial nerves II through XII intact, strength is 5 out of 5 in all 4 extremities, no slurred speech Psych: Normal Mood and Affect Procedures/MDM Patient is a 78-year-old female presents with acute on chronic headache and high blood pressure. She will be given a prescription for ibuprofen and hydrochlorothiazide. At this point I doubt intracranial hemorrhage or mass. I doubt stroke. The patient will need to to follow-up closely with Dr. Phillip within 24 to 48 hours for reevaluation. She can return sooner for any worsening symptoms. Departure Diagnosis: Primary Impression: HTN (hypertension) Hypertension type: essential hypertension Qualified Codes: I10 - Essential (primary) hypertension Additional Impression: Headache Headache type: unspecified Headache chronicity pattern: acute headache Intractability: not intractable Qualified Codes: R51 - Headache Condition: Fair Patient Instructions: Self-Care for Headaches, High Blood Pressure (Hypertension) Additional Instructions: Call your primary care doctor TOMORROW for an appointment during the next 1-2 days.See the doctor sooner or return here if your condition worsens before your appointment time. LONG PRESCOTT MD Nov 17, 2018 16:43
== END 2018-11-17 15:47 | disposition home or self-care (01) ==
LOC: FTE 14:23
DX: I10 Essential (primary) hypertension (principal)
CPT/HCPCS: 99283

== ENCOUNTER 2019-01-31 18:45 | Emergency (ER) | payer MEDICARE, OTHER ==
[~2019-01-31] VITALS: Ht 152.4 cm; Wt 45.9 kg
[~2019-01-31 18:45] MED LIST changes: -AZIT250T94 PO; -CETI10CA PO; +HYDR25TA6 PO; +IBUP-1542 PO
[2019-01-31 18:51] VITALS: Ht 152.4 cm; Wt 45.9 kg
--- NOTE | 2019-01-31 22:20 | ERD ---
ER Documentation Chief Complaint Chief Complaint gen body weakness/tired, states " i'm hearing noises in my head" HPI The patient is a 78-year-old female, presenting to the ER because of generalized weakness for the last couple days, worsening hearing loss on the left ear, chronic noise in her head for more than 3 months. She denies fever, chills, neck pain, chest pain, dyspnea, abdominal pain, vomiting, dysuria, diarrhea. She does not smoke nor drink Past medical history: Hypertension, hard of hearing, history of colon cancer Past surgical history: Colectomy, colostomy, hysterectomy ROS All systems reviewed and are negative except as per history of present illness. Medications Home Meds Active Scripts Sulfamethoxazole/Trimethoprim* (Bactrim Ds* Tablet) 1 Each Tablet, 1 TAB PO DAILY, #7 TAB Prov:RICHARD BROWN MD 02/01/19 Sulfamethoxazole/Trimethoprim* (Bactrim Ds* Tablet) 1 Each Tablet, 1 TAB PO DAILY, #7 TAB Prov:RICHARD BROWN MD 02/01/19 Reported Medications Acetaminophen* (Acetaminophen*) 500 MG Extra Strength Tablet, 500 MG PO Q4H PRN for PAIN AND OR ELEVATED TEMP, TAB 01/31/19 Vitamin E Mixed* (Vitamin E*) 400 Unit Capsule, 400 UNIT PO DAILY, CAP 01/31/19 Calcium Carbonate* (Caltrate-600*) 600 MG Calcium Tab, 600 MG PO BID, TAB (1500 mg Calcium Carbonate) 01/31/19 Loratadine* (Claritin*) 10 Mg Capsule, 10 MG PO DAILY, CAP 01/31/19 Discontinued Reported Medications Ascorbic Acid* (Vitamin C*) 500 Mg Capsule.sa, 500 MG PO DAILY, CAP 01/31/19 Discontinued Scripts Hydrochlorothiazide* (Hydrochlorothiazide*) 25 Mg Tab, 25 MG PO DAILY, #30 TAB Prov:LONG PRESCOTT MD 11/17/18 Ibuprofen* (Motrin*) 600 Mg Tab, 600 MG PO Q6H PRN for PAIN AND OR ELEVATED TEMP, #30 TAB Prov:LONG PRESCOTT MD 11/17/18 Allergies Allergies: Coded Allergies: Penicillins (Unverified Allergy, Mild, VOMITING/DIZZINESS/SOB, 01/31/19) ciprofloxacin (Unverified Allergy, Unknown, 01/31/19) levofloxacin (Unverified Allergy, Unknown, 01/31/19) PMhx/Soc History of Surgery: Yes (PARTIAL COLECTOMY) Anesthesia Reaction: No Hx Neurological Disorder: No Hx Respiratory Disorders: No Hx Cardiac Disorders: Yes (HTN) Hx Psychiatric Problems: No Hx Miscellaneous Medical Probl: No Hx Alcohol Use: No Hx Substance Use: No Hx Tobacco Use: No Smoking Status: Never smoker Physical Exam Vitals Vital Signs Date Temp Pulse Resp B/P (MAP) Pulse Ox O2 O2 Flow FiO2 Time Delivery Rate 01/31/19 61 18 117/85 100 Room Air 23:50 (96) 01/31/19 99.1 80 18 171/72 98 18:51 (105) Physical Exam Const: No acute distress. Head: Atraumatic. Eyes: Normal Conjunctiva. ENT: Normal External Ears, Nose and Mouth. Neck: Full range of motion. No meningismus. Resp: Clear to auscultation bilaterally. Cardio: Regular rate and rhythm. Abd: Soft, non distended, normal bowel sounds, non tender. Colostomy Skin: No petechiae or rashes. Back: No midline or flank tenderness. Ext: No cyanosis, or edema. Neur: Awake and alert. No focal deficit Psych: Normal Mood and Affect. Result Diagram: 01/31/19219901/31/192199 Results 24 hrs Laboratory Tests Test 01/31/19 22:00 White Blood Count 6.3 10^3/ul Red Blood Count 4.50 10^6/ul Hemoglobin 14.2 g/dl Hematocrit 44.8 % Mean Corpuscular Volume 99.6 fl Mean Corpuscular Hemoglobin 31.6 pg Mean Corpuscular Hemoglobin Concent 31.7 g/dl Red Cell Distribution Width 13.0 % Platelet Count 266 10^3/UL Mean Platelet Volume 10.6 fl Immature Granulocytes % 0.300 % Neutrophils % 60.8 % Lymphocytes % 28.0 % Monocytes % 9.6 % Eosinophils % 0.8 % Basophils % 0.5 % Nucleated Red Blood Cells % 0.0 /100WBC Immature Granulocytes # 0.020 10^3/ul Neutrophils # 3.8 10^3/ul Lymphocytes # 1.8 10^3/ul Monocytes # 0.6 10^3/ul Eosinophils # 0.1 10^3/ul Basophils # 0.0 10^3/ul Nucleated Red Blood Cells # 0.0 10^3/ul Prothrombin Time 11.8 Sec Prothrombin Time Ratio 0.9 INR International Normalized Ratio 0.86 Activated Partial Thromboplast Time 31.5 Sec Urine Color YELLOW Urine Clarity CLEAR Urine pH 7.0 Urine Specific [place] 1.015 Urine Ketones NEGATIVE mg/dL Urine Nitrite POSITIVE mg/dL Urine Bilirubin NEGATIVE mg/dL Urine Urobilinogen NEGATIVE mg/dL Urine Leukocyte Esterase 1+ Isabella/ul Urine Microscopic RBC 2 /HPF Urine Microscopic WBC 6 /HPF Urine Bacteria FEW /HPF Urine Hemoglobin 1+ mg/dL Urine Glucose NEGATIVE mg/dL Urine Total Protein NEGATIVE mg/dl Sodium Level 141 mmol/L Potassium Level 4.6 mmol/L Chloride Level 104 mmol/L Carbon Dioxide Level 32 mmol/L Anion Gap 5 Blood Urea Nitrogen 23 mg/dl Creatinine 0.81 mg/dl Est Glomerular Filtrat Rate mL/min mL/min Glucose Level 105 mg/dl Calcium Level 10.0 mg/dl Current Medications Medications Dose Sig/Sweta Start Time Status Last (Trade) Ordered Route PRN Stop Time Admin Dose Reason Admin 1 tab ONCE ONCE 02/01/19 DC 01/31/19 Trimethoprim/ PO 00:00 23:47 02/01/19 00:01 Sulfamethoxaz ole (Bactrim (Ds)) Procedures/[place] [id number] Radiology Main Line: [phone] DIAGNOSTIC IMAGING REPORT Patient: CHERYL LEVY : 1940 Age: 78 Sex: F MR #: [id number] DOS: 01/31/19 2237 Ordering MD: RICHARD BROWN MD Location: E/R Room/Bed: PROCEDURE: CT Brain without contrast. CLINICAL INDICATION: 78-year-old. Headache. TECHNIQUE: A CT of the brain was performed on a multi-slice CT scanner utilizing axial imaging from the skull base through the vertex without IV contrast. Multiplanar reformatted images were made. Images were reviewed on a PACS workstation. One or more the following dose reduction techniques were utilized: Automated exposure control, adjustment of mA/ or kV according to patient's size, or use of iterative reconstruction technique. DICOM images are available for review. The CTDIvol is 30 9.0 mGy and the DLP is 634.23 mGycm. COMPARISON: CT brain 01/22/2018 FINDINGS: Cerebral and cerebellar volume loss. No mass effect or midline shift. No acute intra-axial or extra-axial hemorrhage. No subdural collection. Flores - white matter differentiation is maintained. Calcified plaque left right carotid siphons and intradural left vertebral artery. Rounded 5 mm calcified meningioma arises from the dura of the lateral left temporal lobe. Visualized paranasal sinuses are clear. Mastoid air cells are clear. IMPRESSION: 1. Age-appropriate involutional change. 2. 5 mm lateral left to temporal meningioma. This is of doubtful clinical significance. 3. No acute intracranial hemorrhage or subdural collection. RPTAT: HLRS Physician Devang Date Time Electronically viewed and signed by Karli Scott Physician on 02/01/2019 00:17 RS/ CC: RICHARD BROWN MD [id number] [place] [id number] Radiology Main Line: [phone] DIAGNOSTIC IMAGING REPORT Patient: CHERYL LEVY : 1940 Age: 78 Sex: F MR #: [id number] DOS: 01/31/19 2237 Ordering MD: RICHARD BROWN MD Location: E/R Room/Bed: PROCEDURE: DX Chest 1 View CLINICAL INDICATION: 78 arrow female. COPD. Headache. TECHNIQUE: AP Portable chest. COMPARISON: 08/17/2015 FINDINGS: Hyperinflated lungs. Patient is rotated slightly to the right. Mildly elevated right hemidiaphragm, unchanged. Normal sized heart. Slightly prominent ascending thoracic aorta. Aortic calcified plaque present. No CHF or hilar enlargement. Lungs are clear. IMPRESSION: 1. COPD/emphysema. 2. Rotated chest x-ray was slightly prominent ascending thoracic aorta. Consider properly centered PA and lateral chest x-ray for further evaluation. RPTAT: HLRS Physician Devang Date Time Electronically viewed and signed by Karli Scott Physician on 02/01/2019 00:19 RS/ CC: RICHARD BROWN MD [id number] MEDICAL MAKING DECISION: The patient is a 78-year-old female, presenting with acute cystitis, meningioma. She was treated with Bactrim for acute cystitis The differential diagnoses considered include but are not limited to subarachnoid hemorrhage, occult trauma, CVA, meningitis, encephalitis, hypertension, tension, migraine, cluster, narcotic withdrawal, cervical spine disease, UTI, pyelonephritis. Departure Diagnosis: Primary Impression: UTI (urinary tract infection) Additional Impressions: Cephalgia Hearing loss Condition: Good Comments I discussed the findings with the patient. I advised the patient to follow-up with the primary physician/ neurologist Dr Davies/ ENT MD Dr Johnson in about 1-2 days, sooner if needed and return if any concern. Disclaimer: Inadvertent spelling and grammatical errors are likely due to EHR/dictation software use and do not reflect on the overall quality of patient care. Also, please note that the electronic time recorded on this note does not necessarily reflect the actual time of the patient encounter. RICHARD BROWN MD Jan 31, 2019 22:20
[2019-01-31] MEDS ORDERED: LORA10CA PO (23:28)
[2019-01-31] MEDS ORDERED: ASCO500C7 PO (23:28)
[2019-01-31] MEDS ORDERED: CLC1500T PO (23:28)
[2019-01-31] MEDS ORDERED: ACET-141 PO (23:44)
[2019-01-31] MEDS ORDERED: VITA400C41 PO (23:44)
[2019-02-01] MEDS ORDERED: TRIMETHOPRIM/SULFAMETHOX (DS) TAB PO ONE
[2019-02-01] MEDS ORDERED: SULF1TAB31 PO ×2 (00:37→00:44)
[2019-02-01 01:05] VITALS: BP 115/76; PULSE 67; RESP 15
== END 2019-02-01 01:05 | disposition home or self-care (01) ==
LOC: E/R 18:45
DX: N39.0 Urinary tract infection, site not specified (principal); I10 Essential (primary) hypertension; H91.92 Unspecified hearing loss, left ear; R51 Headache; R40.2142 Coma scale, eyes open, spontaneous, at arrival to emergency department; R40.2362 Coma scale, best motor response, obeys commands, at arrival to emergency department; R40.2252 Coma scale, best verbal response, oriented, at arrival to emergency department; Z85.038 Personal history of other malignant neoplasm of large intestine
CPT/HCPCS: 36415; 70450; 71045; 80048; 81001; 85025; 85610; 85730